=== PATIENT | male | born 1990 | race Caucasian/White ===

== ENCOUNTER 2017-05-19 00:02 | Emergency (ER) | payer MEDICAID ==
[~2017-05-19] VITALS: Ht 167.6 cm; Wt 75.5 kg
[~2017-05-19 00:02] MED LIST: IBUP-1985 PO; PANT-47 PO; SULF1TAB49 PO; TRAM50TA2 PO; WARF5TAB PO
[2017-05-19 02:50] VITALS: BP 118/67
== END 2017-05-19 03:26 | disposition home or self-care (01) ==
LOC: ER 00:02
DX: I87.002 Postthrombotic syndrome without complications of left lower extremity (principal); G89.29 Other chronic pain; F12.10 Cannabis abuse, uncomplicated; F15.90 Other stimulant use, unspecified, uncomplicated; Z86.711 Personal history of pulmonary embolism; Z59.0 Homelessness; Z56.0 Unemployment, unspecified; Z86.718 Personal history of other venous thrombosis and embolism
CPT/HCPCS: 93970; 99284

== ENCOUNTER 2017-07-12 15:28 | Emergency (ER) | payer MEDICAID ==
[~2017-07-12] VITALS: Ht 167.6 cm; Wt 75.0 kg
[~2017-07-12 15:28] MED LIST changes: -IBUP-1985 PO; +NO HOME MEDS; -PANT-47 PO; -SULF1TAB49 PO; -TRAM50TA2 PO; -WARF5TAB PO
[2017-07-12 15:43] VITALS: BP 138/84
== END 2017-07-12 17:44 | disposition home or self-care (01) ==
LOC: ER 15:30
DX: Z02.9 Encounter for administrative examinations, unspecified (principal); G89.29 Other chronic pain; Z86.718 Personal history of other venous thrombosis and embolism; F12.10 Cannabis abuse, uncomplicated; F15.10 Other stimulant abuse, uncomplicated; F11.10 Opioid abuse, uncomplicated; Z56.0 Unemployment, unspecified; Z59.0 Homelessness
CPT/HCPCS: 99281

== ENCOUNTER 2017-08-19 15:24 | Emergency (ER) | payer SELFPAY | END 2017-08-19 16:41 | disposition left against medical advice (07) | LOC: ER 15:25 | DX: M79.605 Pain in left leg (principal); Z53.21 Procedure and treatment not carried out due to patient leaving prior to being seen by health care provider ==

== ENCOUNTER 2017-08-20 20:49 | Inpatient (IN) | payer MEDICAID ==
[~2017-08-20] VITALS: Ht 170.2 cm; Wt 66.0 kg
[2017-08-20] MEDS ORDERED: traMADol 50MG tablet PO ONE (22:05)
[2017-08-20] MEDS ORDERED: ketorolac trometh. 30mg/ml inj. IV ONE (22:05)
[2017-08-20 22:55] LABS: BASOPHILS % (AUTO) 0.3 % (0-1); EOSINOPHILS # (AUTO) 0.1 X10'3 (0-0.9); EOSINOPHILS % (AUTO) 0.9 % (0-6); HEMATOCRIT 34.7 % (42.0-52.0); HEMOGLOBIN 11.8 g/dl (14.0-17.9); LYMPHOCYTES # (AUTO) 2.6 X10'3 (1.1-4.8); LYMPHOCYTES % (AUTO) 37.2 % (21-51); MEAN CORPUSCULAR HEMOGLOBIN 31.9 PG (27.0-31.0); MEAN CORPUSCULAR HGB CONC 34.2 % (33.0-36.5); MEAN CORPUSCULAR VOLUME 93.5 FL (78-98); MEAN PLATELET VOLUME 7.2 FL (7.4-10.4); MONOCYTES # (AUTO) 0.5 X10'3 (0-0.9); MONOCYTES % (AUTO) 7.5 % (2-12); NEUTROPHILS # (AUTO) 3.8 X10'3 (1.8-7.7); NEUTROPHILS % (AUTO) 54.1 % (42-75); PLATELET COUNT 234 X10'3 (140-440); RED BLOOD COUNT 3.71 X10'6 (4.70-6.10); RED CELL DISTRIBUTION WIDTH 13.3 % (11.5-14.5)
[2017-08-20 23:08] LABS: INR 1.1 INR; PARTIAL THROMBOPLASTIN TIME 27 SECONDS (22-32); PROTHROMBIN TIME 10.9 SECONDS (9.0-12.0)
[2017-08-20 23:12] LABS: ALANINE AMINOTRANSFERASE 40 U/L (12-78); ALBUMIN 3.3 G/DL (3.4-5.0); ALBUMIN/GLOBULIN RATIO 0.8 (1.1-1.5); ALKALINE PHOSPHATASE 102 IU/L (46-116); ANION GAP 10 (8-16); ASPARTATE AMINO TRANSFERASE 36 U/L (10-37); BILIRUBIN,TOTAL 0.4 MG/DL (0.1-1.0); BLOOD UREA NITROGEN 20 MG/DL (7-18); BUN/CREATININE RATIO 19.4 (5.4-32.0); CALCIUM 8.2 MG/DL (8.5-10.1); CHLORIDE 105 MMOL/L (99-107); CREATINE KINASE 122 U/L (39-308); CREATININE 1.03 MG/DL (0.60-1.10); GLUCOSE 121 MG/DL (70-104); MAGNESIUM 1.8 MG/DL (1.5-2.4); POTASSIUM 3.8 MMOL/L (3.5-5.1); SODIUM 140 MMOL/L (135-145); TOTAL CARBON DIOXIDE 24.6 MMOL/L (24-32); TOTAL PROTEIN 7.4 G/DL (6.4-8.2); eGFR 88 ML/MIN
[2017-08-20] MEDS ORDERED: iohexol 350MG/ML 100ml bottle IV ONE (23:41)
[2017-08-21] MEDS ORDERED: heparin 10,000 units/1 ML INJ IV PRN (01:40)
[2017-08-21] MEDS ORDERED: heparin 10,000 units/1 ML INJ IV ONE ×2 (01:40)
[2017-08-21] MEDS ORDERED: HYDROcodone/acetaminophen 5mg/325mg tablet PO PRN (02:00)
[2017-08-21] MEDS ORDERED: acetaminophen 325mg tablet PO PRN ×2 (02:00)
[2017-08-21] MEDS ORDERED: ondansetron/PF 4mg/2ml inj IV PRN (02:00)
[2017-08-21] MEDS ORDERED: magnesium hydroxide 30ml (MOM) UD suspension PO PRN (02:00)
[2017-08-21] MEDS ORDERED: mag hydrox/Alum hydrox/simeth 30ml oral suspension PO PRN (02:00)
[2017-08-21] MEDS ORDERED: LORazepam 2 mg/ml vial IV PRN (02:30)
[2017-08-21 03:47] VITALS: BP 127/71
[2017-08-21] MEDS: HYDROcodone/acetaminophen 10/325mg tab PO PRN ×5 (03:58→21:52)
[2017-08-21] MEDS: LORazepam 1 MG tablet PO PRN ×5 (04:11→19:28)
[2017-08-21 07:00] VITALS: BP 117/78
[2017-08-21] MEDS: folic acid 1mg tablet PO SCH (07:54)
[2017-08-21] MEDS: thiamine 100mg tablet PO SCH (07:55)
[2017-08-21] MEDS: multivitamins, therapeutics tablet PO SCH (07:55)
[2017-08-21 10:00] VITALS: BP 112/62
[2017-08-21 13:30] LABS: HIV ANTIBODY 1&2 RAPID PRELIM REACTIVE (Neg)
[2017-08-21 18:00] VITALS: BP 141/94
[2017-08-21] MEDS: rivaroxaban 15mg tablet PO SCH (19:32)
[2017-08-21 22:00] VITALS: BP 89/59
[2017-08-21 23:00] VITALS: BP 112/70
[2017-08-22] MEDS: HYDROcodone/acetaminophen 10/325mg tab PO PRN ×3 (05:14→15:03)
[2017-08-22] MEDS: LORazepam 1 MG tablet PO PRN ×3 (05:14→15:03)
[2017-08-22 06:00] VITALS: BP 119/69
[2017-08-22 06:31] LABS: ALBUMIN 2.9 G/DL (3.4-5.0); ANION GAP 9 (8-16); BLOOD UREA NITROGEN 14 MG/DL (7-18); BUN/CREATININE RATIO 18.2 (5.4-32.0); CALCIUM 8.6 MG/DL (8.5-10.1); CHLORIDE 105 MMOL/L (99-107); CREATININE 0.77 MG/DL (0.60-1.10); GLUCOSE 98 MG/DL (70-104); MAGNESIUM 1.4 MG/DL (1.5-2.4); POTASSIUM 4.2 MMOL/L (3.5-5.1); SODIUM 139 MMOL/L (135-145); TOTAL CARBON DIOXIDE 25.4 MMOL/L (24-32); eGFR > 90 ML/MIN
[2017-08-22] MEDS ORDERED: pantoprazole 40mg Tablet.DR PO SCH (07:30)
[2017-08-22] MEDS: folic acid 1mg tablet PO SCH (07:57)
[2017-08-22] MEDS: multivitamins, therapeutics tablet PO SCH (07:57)
[2017-08-22] MEDS: rivaroxaban 15mg tablet PO SCH (07:57)
[2017-08-22] MEDS: thiamine 100mg tablet PO SCH (07:57)
[2017-08-22] MEDS ORDERED: APIX5TAB3 PO (16:20)
[2017-08-22] MEDS ORDERED: TRAM50TA2 PO (16:21)
[2017-08-23 09:16] LABS: HEP B CORE AB, TOT Negative (Negative); HEPATITIS C ANTIBODY >11.0 s/co ratio (0.0-0.9)
[2017-08-23 11:22] LABS: RPR Reactive (Non Reactive)
== END 2017-08-22 17:00 | disposition home or self-care (01) | DRG 197 ==
LOC: ER 20:50 → ED HOLD 08-21 02:00 → ORTHO 4S 08-21 03:20
PROVIDERS: ADMIT Internal Medicine; ATTEND Legal Medicine
PROC: B32T1ZZ Computerized Tomography (CT Scan) of Left Pulmonary Artery using Low Osmolar Contrast (ICD-10-PCS; principal; 2017-08-21)
PROC: B3201ZZ Computerized Tomography (CT Scan) of Thoracic Aorta using Low Osmolar Contrast (ICD-10-PCS; 2017-08-21)
PROC: B32S1ZZ Computerized Tomography (CT Scan) of Right Pulmonary Artery using Low Osmolar Contrast (ICD-10-PCS; 2017-08-21)
DX: I82.432 Acute embolism and thrombosis of left popliteal vein (principal); D68.2 Hereditary deficiency of other clotting factors; K70.0 Alcoholic fatty liver; F20.9 Schizophrenia, unspecified; M41.9 Scoliosis, unspecified; I82.91 Chronic embolism and thrombosis of unspecified vein; F41.9 Anxiety disorder, unspecified; K29.70 Gastritis, unspecified, without bleeding; D64.9 Anemia, unspecified; G89.29 Other chronic pain; E86.0 Dehydration; F15.10 Other stimulant abuse, uncomplicated; F10.20 Alcohol dependence, uncomplicated; F19.10 Other psychoactive substance abuse, uncomplicated; F11.10 Opioid abuse, uncomplicated; Z59.0 Homelessness; Z56.0 Unemployment, unspecified; Z90.5 Acquired absence of kidney; Z79.01 Long term (current) use of anticoagulants; Z86.711 Personal history of pulmonary embolism; Z91.19 Patient's noncompliance with other medical treatment and regimen
CPT/HCPCS: 36415; 71275; 80048; 80053; 82550; 83735; 85025; 85610; 85730; 86592; 86703; 86704; 86803; 87070; 87535; 93970; 96374; 99285; J1644; J1885; Q9967

== ENCOUNTER 2017-09-05 16:23 | Observation (INO) | payer MEDICAID ==
[~2017-09-05] VITALS: Ht 165.1 cm; Wt 77.0 kg
[~2017-09-05 16:23] MED LIST changes: +APIX5TAB3 PO; +TRAM50TA2 PO
[2017-09-05] MEDS ORDERED: acetaminophen 325mg tablet PO ONE (17:00)
[2017-09-05 17:17] LABS: BASOPHILS # (AUTO) 0.1 X10'3 (0-0.2); EOSINOPHILS # (AUTO) 0.1 X10'3 (0-0.9); EOSINOPHILS % (AUTO) 1.3 % (0-6); HEMATOCRIT 33.2 % (42.0-52.0); HEMOGLOBIN 11.5 g/dl (14.0-17.9); LYMPHOCYTES # (AUTO) 4.2 X10'3 (1.1-4.8); LYMPHOCYTES % (AUTO) 49.3 % (21-51); MEAN CORPUSCULAR HEMOGLOBIN 32.2 PG (27.0-31.0); MEAN CORPUSCULAR HGB CONC 34.7 % (33.0-36.5); MEAN CORPUSCULAR VOLUME 92.7 FL (78-98); MEAN PLATELET VOLUME 6.9 FL (7.4-10.4); MONOCYTES # (AUTO) 0.5 X10'3 (0-0.9); MONOCYTES % (AUTO) 6.1 % (2-12); NEUTROPHILS # (AUTO) 3.6 X10'3 (1.8-7.7); NEUTROPHILS % (AUTO) 42.3 % (42-75); PLATELET COUNT 235 X10'3 (140-440); RED BLOOD COUNT 3.58 X10'6 (4.70-6.10); WHITE BLOOD COUNT 8.5 X10'3 (4.5-11.0)
[2017-09-05 17:27] LABS: PARTIAL THROMBOPLASTIN TIME 25 SECONDS (22-32); PROTHROMBIN TIME 10.3 SECONDS (9.0-12.0)
[2017-09-05 17:31] LABS: ALANINE AMINOTRANSFERASE 31 U/L (12-78); ALBUMIN 3.3 G/DL (3.4-5.0); ALBUMIN/GLOBULIN RATIO 0.8 (1.1-1.5); ALKALINE PHOSPHATASE 96 IU/L (46-116); ANION GAP 11 (8-16); ASPARTATE AMINO TRANSFERASE 27 U/L (10-37); BILIRUBIN,TOTAL 0.3 MG/DL (0.1-1.0); BLOOD UREA NITROGEN 14 MG/DL (7-18); BUN/CREATININE RATIO 19.7 (5.4-32.0); CALCIUM 8.2 MG/DL (8.5-10.1); CHLORIDE 106 MMOL/L (99-107); CREATININE 0.71 MG/DL (0.60-1.10); GLUCOSE 120 MG/DL (70-104); POTASSIUM 3.3 MMOL/L (3.5-5.1); SODIUM 142 MMOL/L (135-145); TOTAL CARBON DIOXIDE 24.9 MMOL/L (24-32); TOTAL PROTEIN 7.3 G/DL (6.4-8.2); eGFR > 90 ML/MIN
[2017-09-05 18:06] LABS: TOTAL CELLS COUNTED 100
[2017-09-05 18:09] LABS: PLATELET ESTIMATE NORMAL; POLYCHROMASIA 1+; SPHEROCYTES FEW; STOMATOCYTES 2+
[2017-09-05] MEDS ORDERED: mag hydrox/Alum hydrox/simeth 30ml oral suspension PO PRN ×3 (19:55)
[2017-09-05] MEDS ORDERED: acetaminophen 325mg tablet PO PRN ×3 (19:55)
[2017-09-05] MEDS ORDERED: ondansetron/PF 4mg/2ml inj IV PRN ×3 (19:55)
[2017-09-05] MEDS ORDERED: magnesium hydroxide 30ml (MOM) UD suspension PO PRN ×3 (19:55)
[2017-09-05 20:33] LABS: HEMATOCRIT 33.9 % (42.0-52.0); HEMOGLOBIN 11.7 g/dl (14.0-17.9); MEAN CORPUSCULAR HEMOGLOBIN 31.9 PG (27.0-31.0); MEAN CORPUSCULAR HGB CONC 34.6 % (33.0-36.5); MEAN CORPUSCULAR VOLUME 92.1 FL (78-98); MEAN PLATELET VOLUME 6.5 FL (7.4-10.4); PLATELET COUNT 231 X10'3 (140-440); RED BLOOD COUNT 3.68 X10'6 (4.70-6.10); RED CELL DISTRIBUTION WIDTH 12.9 % (11.5-14.5); WHITE BLOOD COUNT 6.4 X10'3 (4.5-11.0)
[2017-09-05 20:43] LABS: BLOOD UREA NITROGEN 13 MG/DL (7-18); CREATININE 0.69 MG/DL (0.60-1.10); eGFR > 90 ML/MIN
[2017-09-05] MEDS: morphine 4 MG/ML inj SYRINge IV PRN (20:56)
[2017-09-05 21:30] VITALS: BP 117/66
[2017-09-05 23:55] VITALS: BP 132/83
[2017-09-06] MEDS: morphine 4 MG/ML inj SYRINge IV PRN ×4 (02:26→18:17)
[2017-09-06 05:12] LABS: BASOPHILS % (AUTO) 0.5 % (0-1); EOSINOPHILS # (AUTO) 0.1 X10'3 (0-0.9); EOSINOPHILS % (AUTO) 1.6 % (0-6); HEMOGLOBIN 12.5 g/dl (14.0-17.9); LYMPHOCYTES # (AUTO) 3.4 X10'3 (1.1-4.8); LYMPHOCYTES % (AUTO) 42.4 % (21-51); MEAN CORPUSCULAR HEMOGLOBIN 31.6 PG (27.0-31.0); MEAN CORPUSCULAR HGB CONC 33.9 % (33.0-36.5); MEAN CORPUSCULAR VOLUME 93.2 FL (78-98); MEAN PLATELET VOLUME 7.4 FL (7.4-10.4); MONOCYTES # (AUTO) 0.5 X10'3 (0-0.9); MONOCYTES % (AUTO) 6.4 % (2-12); NEUTROPHILS % (AUTO) 49.1 % (42-75); PLATELET COUNT 226 X10'3 (140-440); RED BLOOD COUNT 3.98 X10'6 (4.70-6.10); RED CELL DISTRIBUTION WIDTH 12.9 % (11.5-14.5); WHITE BLOOD COUNT 8.1 X10'3 (4.5-11.0)
[2017-09-06 06:13] LABS: ALANINE AMINOTRANSFERASE 31 U/L (12-78); ALBUMIN 3.1 G/DL (3.4-5.0); ALBUMIN/GLOBULIN RATIO 0.8 (1.1-1.5); ALKALINE PHOSPHATASE 89 IU/L (46-116); ANION GAP 9 (8-16); ASPARTATE AMINO TRANSFERASE 28 U/L (10-37); BILIRUBIN,TOTAL 0.4 MG/DL (0.1-1.0); BLOOD UREA NITROGEN 14 MG/DL (7-18); BUN/CREATININE RATIO 17.9 (5.4-32.0); CALCIUM 8.3 MG/DL (8.5-10.1); CHLORIDE 106 MMOL/L (99-107); CREATININE 0.78 MG/DL (0.60-1.10); GLUCOSE 100 MG/DL (70-104); POTASSIUM 3.8 MMOL/L (3.5-5.1); SODIUM 140 MMOL/L (135-145); TOTAL CARBON DIOXIDE 25.3 MMOL/L (24-32); TOTAL PROTEIN 7.1 G/DL (6.4-8.2); eGFR > 90 ML/MIN
[2017-09-06 07:00] VITALS: BP 136/93
[2017-09-06] MEDS: enoxaparin 80mg/0.8ml syringe SQ SCH ×2 (07:50→19:24)
[2017-09-06 11:00] VITALS: BP 130/89
[2017-09-06] MEDS ORDERED: penicillin G benzathine 1.2 million unit/2ml syringe IM ONE (13:15)
[2017-09-06 20:00] VITALS: BP 138/88
[2017-09-06] MEDS ORDERED: ketorolac tromethamine 15mg/ml inj. IV ONE (20:35)
[2017-09-07] VITALS: BP 131/87
[2017-09-07] MEDS: morphine 4 MG/ML inj SYRINge IV PRN ×6 (00:04→23:50)
[2017-09-07 05:22] LABS: BASOPHILS # (AUTO) 0.1 X10'3 (0-0.2); BASOPHILS % (AUTO) 0.7 % (0-1); EOSINOPHILS # (AUTO) 0.1 X10'3 (0-0.9); EOSINOPHILS % (AUTO) 1.6 % (0-6); HEMATOCRIT 37.8 % (42.0-52.0); HEMOGLOBIN 12.8 g/dl (14.0-17.9); LYMPHOCYTES # (AUTO) 3.3 X10'3 (1.1-4.8); LYMPHOCYTES % (AUTO) 39.8 % (21-51); MEAN CORPUSCULAR HEMOGLOBIN 31.6 PG (27.0-31.0); MEAN CORPUSCULAR VOLUME 93.1 FL (78-98); MEAN PLATELET VOLUME 7.5 FL (7.4-10.4); MONOCYTES # (AUTO) 0.5 X10'3 (0-0.9); MONOCYTES % (AUTO) 6.3 % (2-12); NEUTROPHILS # (AUTO) 4.3 X10'3 (1.8-7.7); NEUTROPHILS % (AUTO) 51.6 % (42-75); PLATELET COUNT 229 X10'3 (140-440); RED BLOOD COUNT 4.06 X10'6 (4.70-6.10); WHITE BLOOD COUNT 8.3 X10'3 (4.5-11.0)
[2017-09-07 06:07] LABS: ALANINE AMINOTRANSFERASE 26 U/L (12-78); ALBUMIN 3.1 G/DL (3.4-5.0); ALBUMIN/GLOBULIN RATIO 0.8 (1.1-1.5); ALKALINE PHOSPHATASE 96 IU/L (46-116); ANION GAP 8 (8-16); ASPARTATE AMINO TRANSFERASE 21 U/L (10-37); BILIRUBIN,TOTAL 0.3 MG/DL (0.1-1.0); BLOOD UREA NITROGEN 12 MG/DL (7-18); CALCIUM 8.4 MG/DL (8.5-10.1); CHLORIDE 104 MMOL/L (99-107); GLUCOSE 107 MG/DL (70-104); MAGNESIUM 1.9 MG/DL (1.5-2.4); PHOSPHORUS 4.4 MG/DL (2.3-4.5); SODIUM 138 MMOL/L (135-145); TOTAL CARBON DIOXIDE 25.6 MMOL/L (24-32); TOTAL PROTEIN 7.2 G/DL (6.4-8.2); eGFR > 90 ML/MIN
[2017-09-07 08:00] VITALS: BP 130/88
[2017-09-07 08:21] LABS: BASOS 1 % (Not Estab.); EOS 1 % (Not Estab.); EOS (ABSOLUTE) 0.1 x10E3/uL (0.0-0.4); HEMATOCRIT 37.6 % (37.5-51.0); HEMOGLOBIN 12.5 g/dL (13.0-17.7); LYMPHS 41 % (Not Estab.); LYMPHS (ABSOLUTE) 3.4 x10E3/uL (0.7-3.1); MCH 31.3 pg (26.6-33.0); MCHC 33.2 g/dL (31.5-35.7); MCV 94 fL (79-97); MONOCYTES 8 % (Not Estab.); MONOCYTES (ABSOLUTE) 0.6 x10E3/uL (0.1-0.9); NEUTROPHILS 49 % (Not Estab.); PLATELETS 240 x10E3/uL (150-379); RDW 13.6 % (12.3-15.4); WBC 8.1 x10E3/uL (3.4-10.8)
[2017-09-07] MEDS: enoxaparin 80mg/0.8ml syringe SQ SCH ×2 (08:55→19:51)
[2017-09-07 11:00] VITALS: BP 125/83
[2017-09-07] MEDS ORDERED: MORPHINE 2MG in 2ml NS syringe IV ONE (12:00)
[2017-09-07 15:33] LABS: % CD 4 POS. LYMPH. 19.4 % (30.8-58.5); % CD 8 POS. LYMPH. 72.2 % (12.0-35.5); ABS. CD 8 SUPPRESSOR 2455 /uL (109-897); ABSOLUTE CD 4 HELPER 660 /uL (359-1519); CD4/CD8 RATIO 0.27 (0.92-3.72)
[2017-09-07 20:00] VITALS: BP 136/93
[2017-09-08] VITALS: BP 139/86
[2017-09-08] MEDS: morphine 4 MG/ML inj SYRINge IV PRN (04:05)
[2017-09-08 04:55] LABS: BASOPHILS # (AUTO) 0.1 X10'3 (0-0.2); BASOPHILS % (AUTO) 0.6 % (0-1); EOSINOPHILS # (AUTO) 0.1 X10'3 (0-0.9); EOSINOPHILS % (AUTO) 1.5 % (0-6); HEMOGLOBIN 13.8 g/dl (14.0-17.9); LYMPHOCYTES # (AUTO) 3.8 X10'3 (1.1-4.8); LYMPHOCYTES % (AUTO) 42.7 % (21-51); MEAN CORPUSCULAR HEMOGLOBIN 32.6 PG (27.0-31.0); MEAN CORPUSCULAR HGB CONC 35.4 % (33.0-36.5); MEAN CORPUSCULAR VOLUME 92.2 FL (78-98); MEAN PLATELET VOLUME 7.4 FL (7.4-10.4); MONOCYTES # (AUTO) 0.5 X10'3 (0-0.9); MONOCYTES % (AUTO) 5.4 % (2-12); NEUTROPHILS # (AUTO) 4.4 X10'3 (1.8-7.7); NEUTROPHILS % (AUTO) 49.8 % (42-75); PLATELET COUNT 243 X10'3 (140-440); RED BLOOD COUNT 4.23 X10'6 (4.70-6.10); RED CELL DISTRIBUTION WIDTH 12.8 % (11.5-14.5); WHITE BLOOD COUNT 8.8 X10'3 (4.5-11.0)
[2017-09-08 05:20] LABS: ALANINE AMINOTRANSFERASE 34 U/L (12-78); ALBUMIN 3.1 G/DL (3.4-5.0); ALBUMIN/GLOBULIN RATIO 0.7 (1.1-1.5); ALKALINE PHOSPHATASE 99 IU/L (46-116); ANION GAP 8 (8-16); ASPARTATE AMINO TRANSFERASE 27 U/L (10-37); BILIRUBIN,TOTAL 0.3 MG/DL (0.1-1.0); BLOOD UREA NITROGEN 12 MG/DL (7-18); BUN/CREATININE RATIO 16.9 (5.4-32.0); CALCIUM 8.7 MG/DL (8.5-10.1); CHLORIDE 103 MMOL/L (99-107); CREATININE 0.71 MG/DL (0.60-1.10); GLUCOSE 109 MG/DL (70-104); POTASSIUM 4.3 MMOL/L (3.5-5.1); SODIUM 137 MMOL/L (135-145); TOTAL CARBON DIOXIDE 26.3 MMOL/L (24-32); TOTAL PROTEIN 7.4 G/DL (6.4-8.2); eGFR > 90 ML/MIN
[2017-09-08 07:20] VITALS: BP 128/89
[2017-09-08 11:28] LABS: RPR Reactive (Non Reactive)
== END 2017-09-08 10:15 | disposition left against medical advice (07) ==
LOC: ER 16:24 → ED HOLD 19:52 → EDBEDREQ 21:04 → SUR 3N 21:15
PROVIDERS: ADMIT Emergency Medicine; ATTEND Internal Medicine
DX: I82.432 Acute embolism and thrombosis of left popliteal vein (principal); I82.4Z2 Acute embolism and thrombosis of unspecified deep veins of left distal lower extremity; B20 Human immunodeficiency virus [HIV] disease; B19.20 Unspecified viral hepatitis C without hepatic coma; F12.90 Cannabis use, unspecified, uncomplicated; F19.10 Other psychoactive substance abuse, uncomplicated; F17.200 Nicotine dependence, unspecified, uncomplicated; F20.9 Schizophrenia, unspecified; D68.2 Hereditary deficiency of other clotting factors; D68.59 Other primary thrombophilia; D68.51 Activated protein C resistance; Z86.711 Personal history of pulmonary embolism; Z59.0 Homelessness; Z91.19 Patient's noncompliance with other medical treatment and regimen
CPT/HCPCS: 36415; 73590; 80053; 82565; 83735; 84100; 84520; 85025; 85027; 85610; 85730; 86140; 86360; 86592; 87070; 93971; 96372; 96374; 96375; 96376; 99285; G0378; J0561; J1650; J1885; J2270; J2274

== ENCOUNTER 2017-10-26 02:03 | Emergency (ER) | payer MEDICAID ==
[~2017-10-26] VITALS: Ht 165.1 cm; Wt 71.1 kg
[~2017-10-26 02:03] MED LIST changes: -NO HOME MEDS; -TRAM50TA2 PO
[2017-10-26 02:44] LABS: CLARITY,URINE TURBID (Clear); COLOR,URINE YELLOW (Yellow); GLUCOSE, URINE NEGATIVE (Neg); KETONES,URINE NEGATIVE (Neg); LEUKOCYTE ESTERASE ,URINE NEGATIVE (Neg); NITRITES, URINE NEGATIVE (Neg); OCCULT BLOOD,URINE LARGE (Neg); PROTEIN,URINE TRACE mg/dl (Neg); UA COLLECTION TYPE CLN CATCH MIDSTREAM
[2017-10-26 03:01] LABS: BACTERIA,URINE NONE SEEN /HPF (Neg); SQUAMOUS EPITHELIAL CELL,UR FEW /LPF (FEW); WBC,URINE NONE SEEN /HPF (0-4)
[2017-10-26 03:02] LABS: AMORPHOUS URATES 4+; MUCUS STRANDS NONE SEEN /LPF (Neg)
[2017-10-26] MEDS ORDERED: HYDROcodone/acetaminophen 5mg/325mg tablet PO ONE (03:25)
[2017-10-26 03:43] LABS: BASOPHILS # (AUTO) 0.1 X10'3 (0-0.2); BASOPHILS % (AUTO) 1.3 % (0-1); EOSINOPHILS # (AUTO) 0.5 X10'3 (0-0.9); EOSINOPHILS % (AUTO) 8.6 % (0-6); HEMATOCRIT 35.5 % (42.0-52.0); HEMOGLOBIN 12.3 g/dl (14.0-17.9); LYMPHOCYTES # (AUTO) 2.3 X10'3 (1.1-4.8); LYMPHOCYTES % (AUTO) 39.4 % (21-51); MEAN CORPUSCULAR HEMOGLOBIN 31.6 PG (27.0-31.0); MEAN CORPUSCULAR HGB CONC 34.5 % (33.0-36.5); MEAN CORPUSCULAR VOLUME 91.7 FL (78-98); MEAN PLATELET VOLUME 8.3 FL (7.4-10.4); MONOCYTES # (AUTO) 0.5 X10'3 (0-0.9); MONOCYTES % (AUTO) 8.8 % (2-12); NEUTROPHILS # (AUTO) 2.5 X10'3 (1.8-7.7); NEUTROPHILS % (AUTO) 41.9 % (42-75); PLATELET COUNT 152 X10'3 (140-440); RED BLOOD COUNT 3.87 X10'6 (4.70-6.10); RED CELL DISTRIBUTION WIDTH 13.5 % (11.5-14.5); WHITE BLOOD COUNT 5.9 X10'3 (4.5-11.0)
[2017-10-26] MEDS ORDERED: CefTRIAXone/D5W-Rocephin 1gm 50 ML IV ONE (03:45)
[2017-10-26 03:55] LABS: INR 1.1 INR; PARTIAL THROMBOPLASTIN TIME 26 SECONDS (22-32); PROTHROMBIN TIME 11.1 SECONDS (9.0-12.0)
[2017-10-26 04:02] LABS: ALANINE AMINOTRANSFERASE 349 U/L (12-78); ALBUMIN 3.3 G/DL (3.4-5.0); ALBUMIN/GLOBULIN RATIO 0.8 (1.1-1.5); ALKALINE PHOSPHATASE 138 IU/L (46-116); ANION GAP 7 (8-16); ASPARTATE AMINO TRANSFERASE 330 U/L (10-37); BILIRUBIN,TOTAL 0.3 MG/DL (0.1-1.0); BLOOD UREA NITROGEN 10 MG/DL (7-18); BUN/CREATININE RATIO 10.5 (5.4-32.0); CALCIUM 8.4 MG/DL (8.5-10.1); CHLORIDE 104 MMOL/L (99-107); CREATININE 0.95 MG/DL (0.60-1.10); GLUCOSE 102 MG/DL (70-104); MAGNESIUM 1.6 MG/DL (1.5-2.4); POTASSIUM 3.8 MMOL/L (3.5-5.1); SODIUM 139 MMOL/L (135-145); TOTAL CARBON DIOXIDE 28.3 MMOL/L (24-32); TOTAL PROTEIN 7.6 G/DL (6.4-8.2); eGFR > 90 ML/MIN
[2017-10-26] MEDS ORDERED: SULF1TAB49 PO (04:43)
[2017-10-26 04:59] VITALS: BP 115/69
== END 2017-10-26 05:01 | disposition home or self-care (01) ==
LOC: ER 02:04
DX: S81.802A Unspecified open wound, left lower leg, initial encounter (principal); L03.116 Cellulitis of left lower limb; F12.90 Cannabis use, unspecified, uncomplicated; F15.90 Other stimulant use, unspecified, uncomplicated; F11.90 Opioid use, unspecified, uncomplicated; G89.29 Other chronic pain; Z86.718 Personal history of other venous thrombosis and embolism; Z88.6 Allergy status to analgesic agent; Z88.5 Allergy status to narcotic agent; Z79.899 Other long term (current) drug therapy; Z59.0 Homelessness; Z56.0 Unemployment, unspecified; X58.XXXA Exposure to other specified factors, initial encounter; Y93.89 Activity, other specified; Y92.89 Other specified places as the place of occurrence of the external cause; Y99.8 Other external cause status
CPT/HCPCS: 36415; 80053; 81001; 83605; 83735; 84145; 85025; 85610; 85730; 87040; 87070; 87077; 87186; 96365; 99284; J0696

== ENCOUNTER 2017-11-07 01:57 | Inpatient (IN) | payer MEDICAID ==
[~2017-11-07] VITALS: Ht 167.6 cm; Wt 80.0 kg
[2017-11-07] MEDS ORDERED: piperacillin/tazo 3.375gm/50ml 50 ML IV ONE (02:15)
[2017-11-07] MEDS ORDERED: vancomycin/NS 1 GM ADD-VANTAGE 250 ML IV ONE (02:15)
[2017-11-07] MEDS ORDERED: normal saline 1000ML IV soln IV ONE (02:15)
[2017-11-07 02:56] LABS: BASOPHILS % (AUTO) 0.5 % (0-1); EOSINOPHILS # (AUTO) 0.1 X10'3 (0-0.9); EOSINOPHILS % (AUTO) 0.9 % (0-6); HEMATOCRIT 36.3 % (42.0-52.0); HEMOGLOBIN 12.7 g/dl (14.0-17.9); LYMPHOCYTES # (AUTO) 2.5 X10'3 (1.1-4.8); LYMPHOCYTES % (AUTO) 29.1 % (21-51); MEAN CORPUSCULAR HEMOGLOBIN 31.6 PG (27.0-31.0); MEAN CORPUSCULAR HGB CONC 34.9 % (33.0-36.5); MEAN CORPUSCULAR VOLUME 90.5 FL (78-98); MEAN PLATELET VOLUME 7.2 FL (7.4-10.4); MONOCYTES # (AUTO) 0.7 X10'3 (0-0.9); MONOCYTES % (AUTO) 8.3 % (2-12); NEUTROPHILS # (AUTO) 5.2 X10'3 (1.8-7.7); NEUTROPHILS % (AUTO) 61.2 % (42-75); PLATELET COUNT 231 X10'3 (140-440); RED BLOOD COUNT 4.01 X10'6 (4.70-6.10); RED CELL DISTRIBUTION WIDTH 13.8 % (11.5-14.5); WHITE BLOOD COUNT 8.5 X10'3 (4.5-11.0)
[2017-11-07 03:06] LABS: PARTIAL THROMBOPLASTIN TIME 26 SECONDS (22-32); PROTHROMBIN TIME 10.7 SECONDS (9.0-12.0)
[2017-11-07] MEDS ORDERED: NO HOME MEDS (03:06)
[2017-11-07 03:11] LABS: ALANINE AMINOTRANSFERASE 351 U/L (12-78); ALBUMIN 3.5 G/DL (3.4-5.0); ALBUMIN/GLOBULIN RATIO 0.7 (1.1-1.5); ALKALINE PHOSPHATASE 215 IU/L (46-116); ANION GAP 12 (8-16); ASPARTATE AMINO TRANSFERASE 248 U/L (10-37); BILIRUBIN,TOTAL 0.5 MG/DL (0.1-1.0); BLOOD UREA NITROGEN 22 MG/DL (7-18); BUN/CREATININE RATIO 20.2 (5.4-32.0); CALCIUM 8.4 MG/DL (8.5-10.1); CHLORIDE 101 MMOL/L (99-107); CREATININE 1.09 MG/DL (0.60-1.10); GLUCOSE 150 MG/DL (70-104); POTASSIUM 3.6 MMOL/L (3.5-5.1); SODIUM 137 MMOL/L (135-145); TOTAL CARBON DIOXIDE 24.2 MMOL/L (24-32); TOTAL PROTEIN 8.3 G/DL (6.4-8.2); eGFR 82 ML/MIN
[2017-11-07 03:20] LABS: CLARITY,URINE CLEAR (Clear); COLOR,URINE YELLOW (Yellow); GLUCOSE, URINE NEGATIVE (Neg); KETONES,URINE NEGATIVE (Neg); LEUKOCYTE ESTERASE ,URINE NEGATIVE (Neg); NITRITES, URINE NEGATIVE (Neg); OCCULT BLOOD,URINE NEGATIVE (Neg); PH,URINE 5.5 (4.8-8.0); PROTEIN,URINE TRACE mg/dl (Neg)
[2017-11-07 03:31] LABS: BACTERIA,URINE FEW /HPF (Neg); RBC,URINE 0-2 /HPF (0-2); SQUAMOUS EPITHELIAL CELL,UR FEW /LPF (FEW); UA COLLECTION TYPE VOIDED; WBC,URINE 0-4 /HPF (0-4)
[2017-11-07 03:47] LABS: URINE AMPHETAMINE SCREEN POSITIVE (Neg); URINE BARBITUATE SCREEN NEGATIVE (Neg); URINE BENZODIAZEPINES SCREEN NEGATIVE (Neg); URINE CANNABINOID SCREEN POSITIVE (Neg); URINE COCAINE SCREEN NEGATIVE (Neg); URINE METHADONE SCREEN NEGATIVE (Neg); URINE OPIATE SCREEN POSITIVE (Neg); URINE PHENCYCLIDINE SCREEN NEGATIVE (Neg)
[2017-11-07] MEDS ORDERED: enoxaparin 80mg/0.8ml syringe SUBCUT ONE (04:01)
[2017-11-07] MEDS ORDERED: penicillin G benzathine 1.2 million unit/2ml syringe IM ONE ×3 (04:05→12:10)
[2017-11-07] MEDS ORDERED: normal saline 1000ml 1,000 ML IV SCH (04:32)
[2017-11-07] MEDS ORDERED: acetaminophen 325mg tablet PO PRN (04:35)
[2017-11-07] MEDS ORDERED: ondansetron/PF 4mg/2ml inj IV PRN (04:35)
[2017-11-07] MEDS ORDERED: mag hydrox/Alum hydrox/simeth 30ml oral suspension PO PRN (04:35)
[2017-11-07] MEDS ORDERED: magnesium hydroxide 30ml (MOM) UD suspension PO PRN (04:35)
[2017-11-07] MEDS ORDERED: LORazepam 1 MG tablet PO PRN (04:45)
[2017-11-07 06:05] VITALS: BP 128/74
[2017-11-07] MEDS: HYDROcodone/acetaminophen 10/325mg tab PO SCH ×2 (07:35→12:14)
[2017-11-07] MEDS ORDERED: clindamycin 600mg/D5W 50ml 50 ML IV SCH (08:00)
[2017-11-07] MEDS ORDERED: haloperidol 5mg tablet PO PRN (08:30)
[2017-11-07] MEDS ORDERED: thiamine inj. 100 MG in normal saline 100ml IV soln 100 ML IV ONE (08:30)
[2017-11-07] MEDS ORDERED: haloperidol lactate 5mg/ml inj IM PRN (08:30)
[2017-11-07] MEDS ORDERED: LORazepam 2 mg/ml vial IV PRN (08:30)
[2017-11-07 11:35] VITALS: BP 121/71
[2017-11-07] MEDS ORDERED: levoFLOXACIN 500mg tablet PO ONE (12:05)
[2017-11-07] MEDS ORDERED: CLIN-5 PO (14:03)
[2017-11-07] MEDS ORDERED: LEVO750T21 PO (14:03)
[2017-11-07] MEDS ORDERED: enoxaparin 40mg/0.4ml syringe SUBCUT SCH (16:00)
[2017-11-08] MEDS ORDERED: folic acid inj. 2 MG, thiamine inj. 100 MG, MVI, adult No.4 with vit. K 10 ML in dextro... IV SCH ×4 (08:00)
[2017-11-09] MEDS ORDERED: LORazepam 2 mg/ml vial IV PRN (08:30)
[2017-11-09] MEDS ORDERED: LORazepam 1 MG tablet PO PRN (08:30)
[2017-11-11] MEDS ORDERED: LORazepam 1 MG tablet PO PRN (08:30)
[2017-11-11] MEDS ORDERED: LORazepam 2 mg/ml vial IV PRN (08:30)
== END 2017-11-07 15:45 | disposition home or self-care (01) | DRG 197 ==
LOC: ER 01:59 → ED HOLD 04:32 → ORTHO 4S 05:55
PROVIDERS: ADMIT Internal Medicine; ATTEND Family Medicine
DX: I82.4Z2 Acute embolism and thrombosis of unspecified deep veins of left distal lower extremity (principal); D68.51 Activated protein C resistance; D68.2 Hereditary deficiency of other clotting factors; L03.116 Cellulitis of left lower limb; L97.929 Non-pressure chronic ulcer of unspecified part of left lower leg with unspecified severity; A52.8 Late syphilis, latent; I27.82 Chronic pulmonary embolism; I82.5Z2 Chronic embolism and thrombosis of unspecified deep veins of left distal lower extremity; F20.9 Schizophrenia, unspecified; R74.0 Nonspecific elevation of levels of transaminase and lactic acid dehydrogenase [LDH]; G89.29 Other chronic pain; M54.9 Dorsalgia, unspecified; F19.10 Other psychoactive substance abuse, uncomplicated; Z91.14 Patient's other noncompliance with medication regimen; Z88.8 Allergy status to other drugs, medicaments and biological substances; Z91.19 Patient's noncompliance with other medical treatment and regimen; Z88.6 Allergy status to analgesic agent; Z56.0 Unemployment, unspecified; Z59.0 Homelessness
CPT/HCPCS: 36415; 71045; 73590; 80053; 80305; 81001; 83605; 83735; 84145; 85025; 85610; 85730; 86592; 87040; 87070; 93971; J0561; J1650; J2543; J3370; J3411; J3490; J7030; J7060

== ENCOUNTER 2017-11-20 15:38 | Emergency (ER) | payer MEDICAID ==
[~2017-11-20] VITALS: Ht 167.6 cm; Wt 73.1 kg
[~2017-11-20 15:38] MED LIST changes: -APIX5TAB3 PO; +CLIN-5 PO; +LEVO750T21 PO
[2017-11-20 15:45] VITALS: BP 110/89
== END 2017-11-20 17:04 | disposition left against medical advice (07) ==
LOC: ER 15:38
DX: S01.01XA Laceration without foreign body of scalp, initial encounter (principal); G89.29 Other chronic pain; F12.90 Cannabis use, unspecified, uncomplicated; F15.90 Other stimulant use, unspecified, uncomplicated; F11.90 Opioid use, unspecified, uncomplicated; Z86.711 Personal history of pulmonary embolism; Z86.718 Personal history of other venous thrombosis and embolism; Z59.0 Homelessness; Z56.0 Unemployment, unspecified; Z98.890 Other specified postprocedural states; Z88.5 Allergy status to narcotic agent; Z88.8 Allergy status to other drugs, medicaments and biological substances; Z79.899 Other long term (current) drug therapy; W22.8XXA Striking against or struck by other objects, initial encounter; Y93.89 Activity, other specified; Y92.89 Other specified places as the place of occurrence of the external cause; Y99.8 Other external cause status
CPT/HCPCS: 70450; 99284

== ENCOUNTER 2017-12-04 01:30 | Emergency (ER) | payer MEDICAID | END 2017-12-04 01:53 | disposition left against medical advice (07) | LOC: ER 01:30 | DX: R22.40 Localized swelling, mass and lump, unspecified lower limb (principal); Z53.21 Procedure and treatment not carried out due to patient leaving prior to being seen by health care provider ==

== ENCOUNTER 2017-12-21 04:13 | Emergency (ER) | payer MEDICAID ==
[~2017-12-21 04:13] MED LIST changes: -LEVO750T21 PO
== END 2017-12-21 05:28 | disposition left against medical advice (07) ==
LOC: ER 04:14
DX: L08.9 Local infection of the skin and subcutaneous tissue, unspecified (principal); Z53.21 Procedure and treatment not carried out due to patient leaving prior to being seen by health care provider

== ENCOUNTER 2018-02-02 22:54 | Emergency (ER) | payer MEDICAID ==
[~2018-02-02] VITALS: Ht 165.1 cm; Wt 72.3 kg
[2018-02-02 23:46] VITALS: BP 125/86
== END 2018-02-03 01:57 | disposition left against medical advice (07) ==
LOC: ER 22:55
DX: R45.851 Suicidal ideations (principal); Z53.21 Procedure and treatment not carried out due to patient leaving prior to being seen by health care provider

== ENCOUNTER 2018-02-09 11:27 | Emergency (ER) | payer MEDICAID ==
[~2018-02-09] VITALS: Ht 167.6 cm; Wt 80.0 kg
[2018-02-09 11:38] VITALS: BP 123/81
[2018-02-09] MEDS ORDERED: CHLO25CA10 PO (12:22)
[2018-02-09] MEDS ORDERED: LORA1TAB PO (12:22)
== END 2018-02-09 12:35 | disposition home or self-care (01) ==
LOC: ER 11:27
DX: Z00.00 Encounter for general adult medical examination without abnormal findings (principal); G89.29 Other chronic pain; F12.90 Cannabis use, unspecified, uncomplicated; F15.90 Other stimulant use, unspecified, uncomplicated; F11.90 Opioid use, unspecified, uncomplicated; F19.90 Other psychoactive substance use, unspecified, uncomplicated; Z86.711 Personal history of pulmonary embolism; Z98.890 Other specified postprocedural states; Z59.0 Homelessness; Z56.0 Unemployment, unspecified; Z88.5 Allergy status to narcotic agent; Z88.8 Allergy status to other drugs, medicaments and biological substances; Z79.2 Long term (current) use of antibiotics; Z79.899 Other long term (current) drug therapy; Z86.718 Personal history of other venous thrombosis and embolism
CPT/HCPCS: 99283

== ENCOUNTER 2018-02-09 22:48 | Emergency (ER) | payer MEDICAID ==
[~2018-02-09] VITALS: Ht 167.6 cm; Wt 80.0 kg
[~2018-02-09 22:48] MED LIST changes: +CHLO25CA10 PO; +LORA1TAB PO
[2018-02-09 23:37] VITALS: BP 137/84
[2018-02-09] MEDS ORDERED: HYDROcodone/acetaminophen 5mg/325mg tablet PO ONE (23:45)
== END 2018-02-10 00:16 | disposition home or self-care (01) ==
LOC: ER 22:48
DX: I82.502 Chronic embolism and thrombosis of unspecified deep veins of left lower extremity (principal); G89.29 Other chronic pain; F12.90 Cannabis use, unspecified, uncomplicated; F15.90 Other stimulant use, unspecified, uncomplicated; F11.90 Opioid use, unspecified, uncomplicated; Z88.6 Allergy status to analgesic agent; Z88.5 Allergy status to narcotic agent; Z79.2 Long term (current) use of antibiotics; Z79.899 Other long term (current) drug therapy; Z59.0 Homelessness; Z56.0 Unemployment, unspecified
CPT/HCPCS: 93971; 99284

== ENCOUNTER 2018-05-25 22:16 | Emergency (ER) | payer MEDICAID ==
[~2018-05-25] VITALS: Ht 167.6 cm; Wt 84.1 kg
[~2018-05-25 22:16] MED LIST changes: -LORA1TAB PO
[2018-05-25 22:22] VITALS: BP 142/92
== END 2018-05-25 23:35 ==
LOC: ER 22:17
DX: F15.10 Other stimulant abuse, uncomplicated (principal); R06.02 Shortness of breath; G89.29 Other chronic pain; F41.9 Anxiety disorder, unspecified; F32.9 Major depressive disorder, single episode, unspecified; F12.10 Cannabis abuse, uncomplicated; F11.10 Opioid abuse, uncomplicated; Z59.0 Homelessness; Z56.0 Unemployment, unspecified; Z86.711 Personal history of pulmonary embolism; Z86.718 Personal history of other venous thrombosis and embolism; Z88.5 Allergy status to narcotic agent; Z79.899 Other long term (current) drug therapy
CPT/HCPCS: 99283

== ENCOUNTER 2018-11-18 10:11 | Emergency (ER) | payer MEDICAID ==
[~2018-11-18] VITALS: Ht 157.5 cm; Wt 72.7 kg
[~2018-11-18 10:11] MED LIST changes: +APIX5TAB3 PO; +BENZ1TAB7 PO; +BUPR1TAB52 SL; -CHLO25CA10 PO; -CLIN-5 PO; +FLUO20CA22 PO; +OLAN10TA19 PO; +OLAN2.5T28 PO; +TRAZ-251 PO
[2018-11-18 11:56] LABS: ALANINE AMINOTRANSFERASE 111 U/L (12-78); ALBUMIN 3.5 G/DL (3.4-5.0); ALBUMIN/GLOBULIN RATIO 0.7 (1.1-1.5); ALKALINE PHOSPHATASE 85 IU/L (46-116); ANION GAP 10 (8-16); ASPARTATE AMINO TRANSFERASE 132 U/L (10-37); BILIRUBIN,TOTAL 0.2 MG/DL (0.1-1.0); BLOOD UREA NITROGEN 12 MG/DL (7-18); BUN/CREATININE RATIO 15.8 (5.4-32.0); CALCIUM 8.7 MG/DL (8.5-10.1); CHLORIDE 107 MMOL/L (99-107); CREATININE 0.76 MG/DL (0.60-1.10); GLUCOSE 106 MG/DL (70-104); POTASSIUM 4.2 MMOL/L (3.5-5.1); SODIUM 141 MMOL/L (135-145); TOTAL CARBON DIOXIDE 24.3 MMOL/L (24-32); TOTAL PROTEIN 8.3 G/DL (6.4-8.2); eGFR > 90 ML/MIN
[2018-11-18 12:04] LABS: BASOPHILS % (AUTO) 0.6 % (0-1); EOSINOPHILS # (AUTO) 0.1 X10'3 (0-0.9); EOSINOPHILS % (AUTO) 0.8 % (0-6); HEMATOCRIT 39.5 % (42.0-52.0); HEMOGLOBIN 13.2 g/dl (14.0-17.9); LYMPHOCYTES # (AUTO) 2.4 X10'3 (1.1-4.8); LYMPHOCYTES % (AUTO) 35.4 % (21-51); MEAN CORPUSCULAR HEMOGLOBIN 31.6 PG (27.0-31.0); MEAN CORPUSCULAR HGB CONC 33.5 g/dL (33.0-36.5); MEAN CORPUSCULAR VOLUME 94.2 FL (78-98); MEAN PLATELET VOLUME 7.5 FL (7.4-10.4); MONOCYTES # (AUTO) 0.5 X10'3 (0-0.9); MONOCYTES % (AUTO) 7.2 % (2-12); NEUTROPHILS # (AUTO) 3.9 X10'3 (1.8-7.7); PLATELET COUNT 225 X10'3 (140-440); RED BLOOD COUNT 4.19 X10'6 (4.70-6.10); RED CELL DISTRIBUTION WIDTH 14.8 % (11.5-14.5); WHITE BLOOD COUNT 6.9 X10'3 (4.5-11.0)
[2018-11-18 12:06] LABS: ETHANOL 0.335 GM/DL (0.0-0.010)
[2018-11-18] MEDS ORDERED: normal saline 1000ML IV soln IVB ONE ×2 (12:15→15:30)
[2018-11-18] MEDS ORDERED: thiamine 100mg tablet PO ONE (12:15)
[2018-11-18 13:43] LABS: URINE AMPHETAMINE SCREEN NEGATIVE (Neg); URINE BARBITUATE SCREEN NEGATIVE (Neg); URINE BENZODIAZEPINES SCREEN NEGATIVE (Neg); URINE CANNABINOID SCREEN POSITIVE (Neg); URINE COCAINE SCREEN NEGATIVE (Neg); URINE METHADONE SCREEN NEGATIVE (Neg); URINE OPIATE SCREEN NEGATIVE (Neg); URINE PHENCYCLIDINE SCREEN NEGATIVE (Neg)
[2018-11-18] MEDS ORDERED: LORazepam 2 mg/ml vial IM ONE (13:45)
--- NOTE | 2018-11-18 14:28 | NUR ---
Pt brought to the ER Overflow. He has fluids ordered. He is asking for more medication. He was just given an Ativan.
--- NOTE | 2018-11-18 14:49 | NUR ---
PT IS DEMANDING GEODON. PT IS BEING MOUTHY
--- NOTE | 2018-11-18 14:51 | NUR ---
Pt up to the bathroom.
[2018-11-18 14:52] LABS: CLARITY,URINE CLEAR (Clear); COLOR,URINE YELLOW (Yellow); GLUCOSE, URINE NEGATIVE (Neg); KETONES,URINE NEGATIVE (Neg); LEUKOCYTE ESTERASE ,URINE NEGATIVE (Neg); NITRITES, URINE NEGATIVE (Neg); OCCULT BLOOD,URINE NEGATIVE (Neg); PH,URINE 5.5 (4.8-8.0); PROTEIN,URINE NEGATIVE (Neg); UROBILINOGEN,URINE 0.2 E.U/dL (0.2-1.0)
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
[2018-11-18 14:57] LABS: UA COLLECTION TYPE CLN CATCH MIDSTREAM
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
--- NOTE | 2018-11-18 15:15 | NUR ---
Pt in bed resting with lights off
--- NOTE | 2018-11-18 15:18 | NUR ---
PT IS IN BATHROOM
[2018-11-18] MEDS ORDERED: ziprasidone IM 20mg inj **IM only IM ONE (15:30)
[2018-11-18] MEDS ORDERED: APIX5TAB3 PO (16:03)
[2018-11-18] MEDS ORDERED: OLAN5TAB5 PO (16:04)
[2018-11-18] MEDS ORDERED: TRAZ-219 PO (16:05)
--- NOTE | 2018-11-18 16:09 | NUR ---
Pt asleep resting on left side in no apparent distress. Respirations are even and unlabored.
--- NOTE | 2018-11-18 16:49 | NUR ---
Pt up to the bathroom
--- NOTE | 2018-11-18 18:02 | NUR ---
Pt asleep resting on right side in no apparent distress. Respirations are even and unlabored.
[2018-11-18] MEDS ORDERED: traMADol 50MG tablet PO ONE (18:50)
[2018-11-18] MEDS: apixaban 5mg tablet PO SCH (20:28)
[2018-11-18] MEDS: traZODone 50mg tablet PO SCH (21:00)
[2018-11-19] MEDS ORDERED: traMADol 50MG tablet PO ONE (01:15)
--- NOTE | 2018-11-19 06:19 | NUR ---
Pt asleep on his back with even unlabored respirations in no apparent distress
--- NOTE | 2018-11-19 06:42 | NUR ---
Dr Maguire at bedside evaluating pain and suicidality
[2018-11-19] MEDS: OLANZapine 5mg rapidly disint. tablet PO SCH (07:03)
[2018-11-19] MEDS: apixaban 5mg tablet PO SCH ×2 (07:03→19:40)
[2018-11-19] MEDS: traMADol 50MG tablet PO SCH ×2 (07:04→19:41)
--- NOTE | 2018-11-19 08:14 | NUR ---
Pt sitting up awake and eating breakfast
--- NOTE | 2018-11-19 09:25 | NUR ---
Pt lying on his back asleep in no apprent distress. Respirations are even and unlabored.
--- NOTE | 2018-11-19 11:36 | NUR ---
Pt lying on his left side asleep in no apprent distress. Respirations are even and unlabored.
--- NOTE | 2018-11-19 12:31 | NUR ---
Pt lying on his right side asleep in no apprent distress. Respirations are even and unlabored.
--- NOTE | 2018-11-19 13:04 | NUR ---
Pt sittting up and eating lunch
--- NOTE | 2018-11-19 13:07 | NUR ---
Pt up to the bathroom
--- NOTE | 2018-11-19 13:58 | NUR ---
PT SLEEPING, NO S/S OF DISTRESS, DISCOMFORT OR AGITATION, RESPIRATIONS SPONTANEOUS, EVEN AND UNLABORED.
--- NOTE | 2018-11-19 15:19 | NUR ---
PT SLEEPING, NO S/S OF DISTRESS, DISCOMFORT OR AGITATION, RESPIRATIONS SPONTANEOUS, EVEN AND UNLABORED.
--- NOTE | 2018-11-19 16:40 | NUR ---
Pharmacy here to provide pt education on taking Elaquis. Pt given verbal instruction and handouts.
--- NOTE | 2018-11-19 17:35 | NUR ---
PT SLEEPING, NO S/S OF DISTRESS, DISCOMFORT OR AGITATION, RESPIRATIONS SPONTANEOUS, EVEN AND UNLABORED.
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
--- NOTE | 2018-11-19 18:46 | NUR ---
Patient appears to be sleeping, I was able to wake him easily when I introduced myself as his nurse ning and he stated that he was just waiting for his medicine.
[2018-11-19] MEDS: traZODone 50mg tablet PO SCH (21:00)
--- NOTE | 2018-11-19 21:30 | NUR ---
patient refused Trazadone.
--- NOTE | 2018-11-19 22:22 | NUR ---
Patient up to use the restroom.
--- NOTE | 2018-11-20 00:40 | NUR ---
Patient appears to be sleeping.
--- NOTE | 2018-11-20 02:54 | NUR ---
pt up to use restroom, asked for more Tramadol and then asked for Trazadone that was refused earlier.
--- NOTE | 2018-11-20 05:31 | NUR ---
Patient woken to have vitals.
--- NOTE | 2018-11-20 06:45 | NUR ---
Awake and ambulated to the bathroom without problem. Returned to bed and asked for his pain medication. States pain level in his leg is a 9. All morning medications administered as ordered, including Ultram.
[2018-11-20] MEDS: apixaban 5mg tablet PO SCH ×2 (06:47→19:01)
[2018-11-20] MEDS: OLANZapine 5mg rapidly disint. tablet PO SCH (06:49)
[2018-11-20] MEDS: traMADol 50MG tablet PO SCH ×2 (06:49→19:01)
--- NOTE | 2018-11-20 08:00 | NUR ---
Served breakfast. Ate 100% of his meal. Patient is quiet and withdrawn. Does not speak unless spoken to. Asked about his suicidal plan. Patient stated "I don't have a plan. I just want to ."
--- NOTE | 2018-11-20 09:00 | NUR ---
Opal from [facility] at bedside to talk with patient about outpatient supports available to him. Also spoke with patient about his overuse of alcohol. Patient states "People give me alcohol and then I go out of my head."
--- NOTE | 2018-11-20 10:00 | NUR ---
Asleep at this time. Color and breathing WNL. In line of sight of staff at all times.
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
--- NOTE | 2018-11-20 13:00 | NUR ---
Served lunch tray. Ate 100% of his meal. Up to the bathroom. Returned immediately to bed afterwards. Saline lock removed from left forearm without event.
--- NOTE | 2018-11-20 15:00 | NUR ---
Continues to sleep at this time. In no distress. In line of sight of staff.
--- NOTE | 2018-11-20 17:10 | NUR ---
Call received from [place] at [facility] for nurse to nurse report. Report given. Notified patient has a DVT. Patient not accepted for care.
[2018-11-20 17:52] VITALS: BP 115/74
[2018-11-20] MEDS ORDERED: LORazepam 1 MG tablet PO ONE (18:40)
--- NOTE | 2018-11-20 19:00 | NUR ---
Pt finished dinner and is requesting "something" for anxiety. New orders obtained.
--- NOTE | 2018-11-20 20:00 | NUR ---
Pt resting quietly, respirations normal, no s/s of distress.
[2018-11-20] MEDS: traZODone 50mg tablet PO SCH (21:00)
--- NOTE | 2018-11-20 21:00 | NUR ---
Pt resting quietly, respirations normal, no s/s of distress.
--- NOTE | 2018-11-20 21:55 | NUR ---
Pt resting quietly, respirations normal, no s/s of distress.
== END 2018-11-21 00:59 ==
LOC: ER 10:12
DX: F10.129 Alcohol abuse with intoxication, unspecified (principal); R41.82 Altered mental status, unspecified; G89.29 Other chronic pain; F41.9 Anxiety disorder, unspecified; F32.9 Major depressive disorder, single episode, unspecified; F20.9 Schizophrenia, unspecified; F12.90 Cannabis use, unspecified, uncomplicated; F15.90 Other stimulant use, unspecified, uncomplicated; F11.90 Opioid use, unspecified, uncomplicated; Z59.0 Homelessness; Z56.0 Unemployment, unspecified; Z86.711 Personal history of pulmonary embolism; Z86.718 Personal history of other venous thrombosis and embolism; Z88.6 Allergy status to analgesic agent; Z79.899 Other long term (current) drug therapy; Y90.0 Blood alcohol level of less than 20 mg/100 ml
CPT/HCPCS: 36415; 80053; 80305; 80320; 81003; 84443; 85025; 96360; 96361; 96372; 99285; J2060; J3486; J7030

== ENCOUNTER 2018-11-21 00:03 | Inpatient (IN) | payer MEDICAID ==
[~2018-11-21] VITALS: Ht 167.6 cm; Wt 82.3 kg
[~2018-11-21 00:03] MED LIST changes: -BENZ1TAB7 PO; -BUPR1TAB52 SL; -FLUO20CA22 PO; -OLAN10TA19 PO; -OLAN2.5T28 PO; +OLAN5TAB5 PO; +TRAZ-219 PO; -TRAZ-251 PO
[2018-11-21] MEDS ORDERED: magnesium hydroxide 30ml (MOM) UD suspension PO PRN (01:00)
[2018-11-21] MEDS ORDERED: loperamide 2mg capsule PO PRN (01:00)
[2018-11-21] MEDS ORDERED: mag hydrox/Alum hydrox/simeth 30ml oral suspension PO PRN (01:00)
[2018-11-21] MEDS ORDERED: acetaminophen 325mg tablet PO PRN (01:00)
[2018-11-21] MEDS: LORazepam 1 MG tablet PO PRN ×3 (01:48→13:12)
[2018-11-21] MEDS: traMADol 50MG tablet PO PRN ×3 (01:51→18:57)
[2018-11-21] MEDS: acetaminophen 325mg tablet PO PRN ×2 (01:55→13:14)
[2018-11-21 02:16] VITALS: BP 116/89
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
[2018-11-21] MEDS: apixaban 5mg tablet PO SCH ×2 (07:45→20:16)
[2018-11-21 08:00] VITALS: BP 109/68
[2018-11-21] MEDS ORDERED: OLANZAPINE 5 MG TABLET PO SCH (08:00)
[2018-11-21] MEDS ORDERED: tuberculin, purif. prot. deriv. 5 units/0.1ml ID ONE (10:00)
[2018-11-21] MEDS: nicotine 14mg patch - 24hr TD SCH (15:18)
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
[2018-11-21 19:29] VITALS: BP 131/65
[2018-11-21] MEDS: clonazePAM 1mg tablet PO PRN (20:16)
[2018-11-21] MEDS: OLANZAPINE 5 MG TABLET PO SCH (20:16)
[2018-11-21] MEDS: traZODone 50mg tablet PO SCH (20:16)
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
[2018-11-22] MEDS: traMADol 50MG tablet PO PRN ×4 (02:13→21:07)
[2018-11-22] MEDS: OLANZapine 2.5MG tablet PO SCH ×2 (07:06→12:56)
[2018-11-22] MEDS: clonazePAM 1mg tablet PO PRN ×3 (07:06→21:08)
[2018-11-22] MEDS: apixaban 5mg tablet PO SCH ×2 (07:06→21:00)
[2018-11-22] MEDS: FLUoxetine 20mg capsule PO SCH (07:06)
[2018-11-22] MEDS: acetaminophen 325mg tablet PO PRN ×2 (07:09→12:59)
[2018-11-22] MEDS: nicotine 14mg patch - 24hr TD SCH (07:10)
[2018-11-22 07:18] LABS: CHOL/HDL RATIO 1.9 (0.00-4.99); CHOLESTEROL 134 MG/DL (0-200); HDL CHOLESTEROL 69 MG/DL (35-60); LDL CHOLESTEROL 58 MG/DL (50-100); TRIGLYCERIDES 38 MG/DL (20-135)
[2018-11-22 08:16] VITALS: BP 133/80
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
[2018-11-22 19:17] VITALS: BP 119/85
[2018-11-22] MEDS: traZODone 50mg tablet PO SCH (21:00)
[2018-11-22] MEDS: OLANZAPINE 5 MG TABLET PO SCH (21:00)
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
[2018-11-23] MEDS: acetaminophen 325mg tablet PO PRN (05:22)
[2018-11-23] MEDS: FLUoxetine 20mg capsule PO SCH (07:37)
[2018-11-23] MEDS: apixaban 5mg tablet PO SCH ×2 (07:37→21:26)
[2018-11-23] MEDS: nicotine 14mg patch - 24hr TD SCH (07:37)
[2018-11-23] MEDS: clonazePAM 1mg tablet PO PRN ×2 (07:37→19:09)
[2018-11-23] MEDS: OLANZapine 2.5MG tablet PO SCH ×2 (07:37→13:12)
[2018-11-23] MEDS: traMADol 50MG tablet PO PRN (07:43)
[2018-11-23 08:00] VITALS: BP 143/107
[2018-11-23 08:15] VITALS: BP 143/107
[2018-11-23] MEDS: HYDROcodone/acetaminophen 10/325mg tab PO PRN ×2 (13:13→19:10)
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
[2018-11-23 20:00] VITALS: BP 130/84
[2018-11-23] MEDS: OLANZAPINE 5 MG TABLET PO SCH (21:26)
[2018-11-23] MEDS: traZODone 50mg tablet PO SCH (21:26)
[2018-11-24] MEDS: HYDROcodone/acetaminophen 10/325mg tab PO PRN ×3 (01:11→14:26)
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
[2018-11-24 08:00] VITALS: BP 131/83
[2018-11-24] MEDS: FLUoxetine 20mg capsule PO SCH (08:08)
[2018-11-24] MEDS: apixaban 5mg tablet PO SCH ×2 (08:08→20:00)
[2018-11-24] MEDS: OLANZapine 2.5MG tablet PO SCH ×2 (08:08→12:48)
[2018-11-24] MEDS: nicotine 14mg patch - 24hr TD SCH (08:11)
[2018-11-24] MEDS: clonazePAM 1mg tablet PO PRN ×2 (08:18→12:48)
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
[2018-11-24] MEDS ORDERED: ALPRAZolam 0.5mg tablet PO ONE (15:35)
[2018-11-24 20:00] VITALS: BP 136/81
[2018-11-24] MEDS ORDERED: buprenorphine/naloxone 2-0.5mg sublingual tablet SL ONE (20:05)
[2018-11-24] MEDS: traZODone 50mg tablet PO SCH (21:02)
[2018-11-24] MEDS: OLANZAPINE 5 MG TABLET PO SCH (21:03)
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
--- NOTE | 2018-11-25 01:29 | NUR ---
Patient has been medication compliant. He is sleeping quietly at this point.
[2018-11-25] MEDS: ALPRAZolam 0.5mg tablet PO PRN (05:47)
--- NOTE | 2018-11-25 05:48 | NUR ---
Patient is ambulating halls, complaining of acute anxiety. The patient is given xanax 1mg po.
[2018-11-25] MEDS: OLANZapine 2.5MG tablet PO SCH ×2 (07:27→12:30)
[2018-11-25] MEDS: FLUoxetine 20mg capsule PO SCH (07:28)
[2018-11-25] MEDS: buprenorphine/naloxone 2-0.5mg sublingual tablet SL SCH (07:28)
[2018-11-25] MEDS: apixaban 5mg tablet PO SCH ×2 (07:28→21:11)
[2018-11-25 07:57] VITALS: BP 125/80
[2018-11-25] MEDS: nicotine 14mg patch - 24hr TD SCH (08:00)
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
[2018-11-25 20:00] VITALS: BP 124/80
[2018-11-25] MEDS: OLANZAPINE 5 MG TABLET PO SCH (21:10)
[2018-11-25] MEDS: traZODone 50mg tablet PO SCH (21:11)
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
[2018-11-26] MEDS: FLUoxetine 20mg capsule PO SCH (07:37)
[2018-11-26] MEDS: apixaban 5mg tablet PO SCH ×2 (07:37→20:34)
[2018-11-26] MEDS: buprenorphine/naloxone 2-0.5mg sublingual tablet SL SCH ×2 (07:37→21:27)
[2018-11-26] MEDS: OLANZapine 2.5MG tablet PO SCH ×2 (07:37→12:43)
[2018-11-26] MEDS: nicotine 14mg patch - 24hr TD SCH (07:40)
[2018-11-26 08:00] VITALS: BP 130/90
[2018-11-26] MEDS: ALPRAZolam 0.5mg tablet PO PRN ×2 (08:19→17:45)
[2018-11-26] MEDS: multivitamins, therapeutics tablet PO SCH (09:43)
[2018-11-26] MEDS: LIDOcaine 5% patch TP PRN (09:44)
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
[2018-11-26 19:51] VITALS: BP 148/91
[2018-11-26] MEDS: OLANZAPINE 5 MG TABLET PO SCH (20:34)
[2018-11-26] MEDS: traZODone 50mg tablet PO SCH (21:00)
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
[2018-11-27] MEDS: ALPRAZolam 0.5mg tablet PO PRN ×3 (04:46→19:21)
[2018-11-27] MEDS: buprenorphine/naloxone 2-0.5mg sublingual tablet SL SCH ×2 (07:30→20:29)
[2018-11-27] MEDS: multivitamins, therapeutics tablet PO SCH (07:31)
[2018-11-27] MEDS: apixaban 5mg tablet PO SCH ×2 (07:31→20:29)
[2018-11-27] MEDS: OLANZapine 2.5MG tablet PO SCH ×2 (07:31→12:50)
[2018-11-27] MEDS: FLUoxetine 20mg capsule PO SCH (07:32)
[2018-11-27] MEDS: nicotine 14mg patch - 24hr TD SCH (07:33)
[2018-11-27 07:55] VITALS: BP 98/82
[2018-11-27] MEDS: LIDOcaine 5% patch TP PRN (10:03)
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
[2018-11-27] MEDS: OLANZAPINE 5 MG TABLET PO SCH (20:29)
[2018-11-27 20:32] VITALS: BP 143/83
[2018-11-27] MEDS: traZODone 50mg tablet PO SCH (21:00)
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
[2018-11-28] MEDS: acetaminophen 325mg tablet PO PRN (05:31)
[2018-11-28 07:42] VITALS: BP 124/83
[2018-11-28] MEDS: OLANZapine 2.5MG tablet PO SCH ×3 (08:35→20:31)
[2018-11-28] MEDS: apixaban 5mg tablet PO SCH ×2 (08:36→20:31)
[2018-11-28] MEDS: multivitamins, therapeutics tablet PO SCH (08:36)
[2018-11-28] MEDS: FLUoxetine 20mg capsule PO SCH (08:37)
[2018-11-28] MEDS: buprenorphine/naloxone 2-0.5mg sublingual tablet SL SCH ×2 (08:37→20:31)
[2018-11-28] MEDS: LIDOcaine 5% patch TP PRN (09:01)
[2018-11-28] MEDS: ALPRAZolam 0.5mg tablet PO PRN ×2 (09:01→15:11)
[2018-11-28] MEDS: nicotine 14mg patch - 24hr TD SCH (09:02)
--- NOTE | 2018-11-28 11:22 | NUR ---
Initial: Pt admit with depression and psychosis. Pt currently on regular diet with documented 100% PO intake throughout LOS meeting nutrient needs. Pt reports Etoh and drug use prior to admit, receiving routine MVI. LBM 11/26. No wounds. No nutrition diagnosis at this time. Will continue to follow. Recommendations: 1) Continue regular diet 2) MVI for reported Etoh hx 3) Routine bowel care 4) Weekly wt Addendum: 11/28/18 at [address] Amended: Links added.
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
[2018-11-28 19:47] VITALS: BP 117/77
[2018-11-28] MEDS: traZODone 50mg tablet PO SCH (20:41)
[2018-11-28] MEDS: OLANZAPINE 5 MG TABLET PO SCH (20:43)
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
[2018-11-29] MEDS: ALPRAZolam 0.5mg tablet PO PRN ×3 (02:53→20:43)
[2018-11-29 08:00] VITALS: BP 140/70
[2018-11-29] MEDS: nicotine 14mg patch - 24hr TD SCH (08:21)
[2018-11-29] MEDS: LIDOcaine 5% patch TP PRN (08:21)
[2018-11-29] MEDS: multivitamins, therapeutics tablet PO SCH (08:22)
[2018-11-29] MEDS: buprenorphine/naloxone 2-0.5mg sublingual tablet SL SCH ×2 (08:22→20:43)
[2018-11-29] MEDS: apixaban 5mg tablet PO SCH ×2 (08:22→20:43)
[2018-11-29] MEDS: FLUoxetine 20mg capsule PO SCH (08:22)
[2018-11-29] MEDS: OLANZapine 2.5MG tablet PO SCH ×2 (08:22→13:23)
[2018-11-29] MEDS: acetaminophen 325mg tablet PO PRN (12:28)
[2018-11-29 20:00] VITALS: BP 111/68
[2018-11-29] MEDS: OLANZAPINE 5 MG TABLET PO SCH (20:43)
[2018-11-29] MEDS: traZODone 50mg tablet PO SCH (20:46)
--- NOTE | 2018-11-30 02:50 | NUR ---
Disregard note below.. KK
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
[2018-11-30] MEDS: acetaminophen 325mg tablet PO PRN ×2 (05:29→19:26)
[2018-11-30] MEDS: ALPRAZolam 0.5mg tablet PO PRN ×3 (05:52→19:25)
[2018-11-30] MEDS: FLUoxetine 20mg capsule PO SCH (07:27)
[2018-11-30] MEDS: buprenorphine/naloxone 2-0.5mg sublingual tablet SL SCH ×2 (07:27→20:48)
[2018-11-30] MEDS: OLANZapine 2.5MG tablet PO SCH ×2 (07:28→12:42)
[2018-11-30] MEDS: multivitamins, therapeutics tablet PO SCH (07:28)
[2018-11-30] MEDS: apixaban 5mg tablet PO SCH ×2 (07:28→20:48)
[2018-11-30] MEDS: nicotine 14mg patch - 24hr TD SCH (07:31)
[2018-11-30 08:00] VITALS: BP 128/76
[2018-11-30] MEDS: LIDOcaine 5% patch TP PRN (08:28)
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
[2018-11-30] MEDS: ibuprofen 200mg tablet PO PRN (17:29)
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
[2018-11-30 20:00] VITALS: BP 117/74
[2018-11-30] MEDS: clindamycin 150mg capsule PO SCH (20:48)
[2018-11-30] MEDS: OLANZAPINE 5 MG TABLET PO SCH (20:48)
[2018-11-30] MEDS: traZODone 50mg tablet PO SCH (23:04)
[2018-12-01] MEDS: clindamycin 150mg capsule PO SCH ×5 (02:23→20:52)
[2018-12-01] MEDS: ALPRAZolam 0.5mg tablet PO PRN ×2 (05:39→19:48)
[2018-12-01] MEDS: ibuprofen 200mg tablet PO PRN ×2 (05:39→15:14)
--- NOTE | 2018-12-01 05:41 | NUR ---
Patient is awake. He complains of anxiety and tooth pain. PO Xanax and Motrin given.
[2018-12-01] MEDS: OLANZapine 2.5MG tablet PO SCH ×2 (07:37→12:45)
[2018-12-01] MEDS: multivitamins, therapeutics tablet PO SCH (07:37)
[2018-12-01] MEDS: buprenorphine/naloxone 2-0.5mg sublingual tablet SL SCH (07:37)
[2018-12-01] MEDS: FLUoxetine 20mg capsule PO SCH (07:37)
[2018-12-01] MEDS: apixaban 5mg tablet PO SCH ×2 (07:37→20:53)
[2018-12-01] MEDS: nicotine 14mg patch - 24hr TD SCH (07:41)
[2018-12-01 08:00] VITALS: BP 130/85
[2018-12-01 08:05] VITALS: BP 112/62
[2018-12-01] MEDS: LIDOcaine 5% patch TP PRN (08:42)
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
[2018-12-01 20:00] VITALS: BP 122/71
[2018-12-01] MEDS: lactobacillus rhamnosus 10,000 MMU CELLS/CAPSULE PO SCH (20:52)
[2018-12-01] MEDS: OLANZAPINE 5 MG TABLET PO SCH (20:52)
[2018-12-01] MEDS: buprenorphine/naloxone 8mg/2mg SL tablet SL SCH (20:52)
[2018-12-01] MEDS: acetaminophen 325mg tablet PO PRN (20:53)
[2018-12-01] MEDS: traZODone 50mg tablet PO SCH (22:07)
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
[2018-12-02] MEDS: clindamycin 150mg capsule PO SCH ×4 (02:00→20:46)
[2018-12-02] MEDS: ALPRAZolam 0.5mg tablet PO PRN ×3 (06:40→21:31)
[2018-12-02] MEDS: lactobacillus rhamnosus 10,000 MMU CELLS/CAPSULE PO SCH ×2 (07:27→20:44)
[2018-12-02] MEDS: multivitamins, therapeutics tablet PO SCH (07:27)
[2018-12-02] MEDS: OLANZapine 2.5MG tablet PO SCH ×2 (07:28→13:20)
[2018-12-02] MEDS: apixaban 5mg tablet PO SCH ×2 (07:28→20:43)
[2018-12-02] MEDS: FLUoxetine 20mg capsule PO SCH (07:28)
[2018-12-02] MEDS: buprenorphine/naloxone 8mg/2mg SL tablet SL SCH ×2 (07:28→20:44)
[2018-12-02] MEDS: nicotine 14mg patch - 24hr TD SCH (07:34)
[2018-12-02] MEDS: LIDOcaine 5% patch TP PRN (07:34)
[2018-12-02 08:00] VITALS: BP 121/74
[2018-12-02] MEDS: ibuprofen 200mg tablet PO PRN (11:54)
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
[2018-12-02 20:00] VITALS: BP 121/74
[2018-12-02] MEDS: OLANZAPINE 5 MG TABLET PO SCH (20:44)
[2018-12-02] MEDS: traZODone 50mg tablet PO SCH (21:59)
[2018-12-03] MEDS: clindamycin 150mg capsule PO SCH ×4 (02:00→20:13)
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
[2018-12-03] MEDS: ALPRAZolam 0.5mg tablet PO PRN ×3 (06:47→20:14)
[2018-12-03] MEDS: nicotine 14mg patch - 24hr TD SCH (07:57)
[2018-12-03 08:00] VITALS: BP 115/56
[2018-12-03] MEDS: lactobacillus rhamnosus 10,000 MMU CELLS/CAPSULE PO SCH ×2 (08:00→20:14)
[2018-12-03] MEDS: apixaban 5mg tablet PO SCH ×2 (08:00→20:14)
[2018-12-03] MEDS: buprenorphine/naloxone 8mg/2mg SL tablet SL SCH ×2 (08:01→20:14)
[2018-12-03] MEDS: OLANZapine 2.5MG tablet PO SCH ×2 (08:01→12:06)
[2018-12-03] MEDS: multivitamins, therapeutics tablet PO SCH (08:01)
[2018-12-03] MEDS: FLUoxetine 20mg capsule PO SCH (08:01)
[2018-12-03] MEDS: ibuprofen 200mg tablet PO PRN ×2 (12:06→20:13)
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
[2018-12-03 19:57] VITALS: BP 104/53
[2018-12-03] MEDS: OLANZAPINE 5 MG TABLET PO SCH (20:13)
[2018-12-03] MEDS: traZODone 50mg tablet PO SCH (21:00)
[2018-12-04] MEDS: clindamycin 150mg capsule PO SCH ×4 (01:50→20:13)
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
[2018-12-04] MEDS: ALPRAZolam 0.5mg tablet PO PRN ×3 (05:38→20:24)
[2018-12-04 07:40] VITALS: BP 113/74
[2018-12-04] MEDS: lactobacillus rhamnosus 10,000 MMU CELLS/CAPSULE PO SCH ×2 (08:09→20:12)
[2018-12-04] MEDS: FLUoxetine 20mg capsule PO SCH (08:09)
[2018-12-04] MEDS: OLANZapine 2.5MG tablet PO SCH ×2 (08:10→12:52)
[2018-12-04] MEDS: apixaban 5mg tablet PO SCH ×2 (08:10→20:14)
[2018-12-04] MEDS: multivitamins, therapeutics tablet PO SCH (08:10)
[2018-12-04] MEDS: buprenorphine/naloxone 8mg/2mg SL tablet SL SCH ×2 (08:10→20:14)
[2018-12-04] MEDS: nicotine 14mg patch - 24hr TD SCH (08:13)
[2018-12-04] MEDS: LIDOcaine 5% patch TP PRN (08:18)
[2018-12-04] MEDS: ibuprofen 200mg tablet PO PRN (09:25)
--- NOTE | 2018-12-04 14:31 | NUR ---
DISCHARGE PLANNING: SW emailed and called [facility] regarding pt discharge. SW left message requesting return contact. SW also informed team that pt will be discharging w/in the next 24-48 hours. Ely Merrill, Service Order Clerk CUSTOMER SUPPORT ANALYST [id number] Supervised by Fracisco Maldonado, [id number]
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
[2018-12-04 20:04] VITALS: BP 123/71
[2018-12-04] MEDS: OLANZAPINE 5 MG TABLET PO SCH (20:13)
[2018-12-04] MEDS: traZODone 50mg tablet PO SCH (20:14)
[2018-12-05] MEDS: clindamycin 150mg capsule PO SCH ×2 (02:14→07:27)
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
[2018-12-05] MEDS: nicotine 14mg patch - 24hr TD SCH (07:26)
[2018-12-05] MEDS: multivitamins, therapeutics tablet PO SCH (07:27)
[2018-12-05] MEDS: apixaban 5mg tablet PO SCH ×2 (07:27→20:05)
[2018-12-05] MEDS: lactobacillus rhamnosus 10,000 MMU CELLS/CAPSULE PO SCH ×2 (07:27→20:05)
[2018-12-05] MEDS: OLANZapine 2.5MG tablet PO SCH ×2 (07:27→11:55)
[2018-12-05] MEDS: FLUoxetine 20mg capsule PO SCH (07:27)
[2018-12-05] MEDS: buprenorphine/naloxone 8mg/2mg SL tablet SL SCH ×2 (07:27→20:07)
[2018-12-05 08:00] VITALS: BP 106/63
--- NOTE | 2018-12-05 15:15 | NUR ---
DISCHARGE PLANNING: SW made contact w/ pt Chemical Equipment Controller, Daljit Dean, who reports he is working w/ probation to learn of possible tx program for pt in [place]. He agreed to meet w/ pt this day in the afternoon. SW informed pt and instructed pt to contact probation. Daljit came to unit to meet w/ pt and discussed tx options. Pt states he is willing to attempt tx through [facility] if there are no other services. LAQUITA discussed this w/ Daljit, who agrees to coordinate transportation and transition w/ pt to tx center. Ely Merrill, Economics Analyst WEDGER MACHINE [id number] Supervised by Fracisco Maldonado, [id number]
--- NOTE | 2018-12-05 16:35 | NUR ---
Initial: Pt admit with depression and psychosis. Pt currently on regular diet with documented 75-100% PO intake throughout LOS meeting nutrient needs. Pt reports Etoh and drug use prior to admit, receiving routine MVI. [facility] 12/05. No wounds. No nutrition diagnosis at this time. Will continue to follow. Recommendations: 1) Continue regular diet 2) MVI for reported Etoh hx 3) bowel care as needed 4) Weekly wt Addendum: 12/05/18 at [address] Amended: Links added.
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
[2018-12-05 19:40] VITALS: BP 98/48
[2018-12-05] MEDS: traZODone 50mg tablet PO SCH (20:06)
[2018-12-05] MEDS: OLANZAPINE 5 MG TABLET PO SCH (20:06)
[2018-12-05] MEDS: ibuprofen 200mg tablet PO PRN (20:51)
[2018-12-05] MEDS: hydrOXYzine 25 MG tablet PO PRN (21:11)
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
[2018-12-06] MEDS: hydrOXYzine 25 MG tablet PO PRN (06:13)
[2018-12-06] MEDS: ibuprofen 200mg tablet PO PRN ×2 (07:20→12:10)
[2018-12-06] MEDS: nicotine 14mg patch - 24hr TD SCH (07:23)
[2018-12-06 07:30] VITALS: BP 124/70
[2018-12-06] MEDS: FLUoxetine 20mg capsule PO SCH (07:40)
[2018-12-06] MEDS: multivitamins, therapeutics tablet PO SCH (07:40)
[2018-12-06] MEDS: OLANZapine 2.5MG tablet PO SCH ×2 (07:41→12:08)
[2018-12-06] MEDS: lactobacillus rhamnosus 10,000 MMU CELLS/CAPSULE PO SCH ×2 (07:41→20:02)
[2018-12-06] MEDS: apixaban 5mg tablet PO SCH ×2 (07:41→20:02)
[2018-12-06] MEDS: buprenorphine/naloxone 8mg/2mg SL tablet SL SCH ×2 (07:42→20:03)
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
[2018-12-06 19:49] VITALS: BP 123/74
[2018-12-06] MEDS: traZODone 50mg tablet PO SCH (20:03)
[2018-12-06] MEDS: OLANZAPINE 5 MG TABLET PO SCH (20:03)
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
[2018-12-07] MEDS: OLANZapine 2.5MG tablet PO SCH ×2 (07:57→12:55)
[2018-12-07] MEDS: lactobacillus rhamnosus 10,000 MMU CELLS/CAPSULE PO SCH (07:57)
[2018-12-07] MEDS: nicotine 14mg patch - 24hr TD SCH (07:57)
[2018-12-07] MEDS: multivitamins, therapeutics tablet PO SCH (07:57)
[2018-12-07] MEDS: buprenorphine/naloxone 8mg/2mg SL tablet SL SCH (07:57)
[2018-12-07] MEDS: apixaban 5mg tablet PO SCH (07:57)
[2018-12-07] MEDS: FLUoxetine 20mg capsule PO SCH (07:57)
[2018-12-07] MEDS ORDERED: NICO-631 TD (08:02)
[2018-12-07] MEDS ORDERED: HYDR-3686 PO (08:02)
[2018-12-07] MEDS ORDERED: FLUO40CA10 PO (08:02)
[2018-12-07] MEDS ORDERED: OLAN5TAB26 PO (08:02)
[2018-12-07] MEDS ORDERED: TRAZ-251 PO (08:02)
[2018-12-07] MEDS ORDERED: APIX5TAB3 PO (08:02)
[2018-12-07] MEDS ORDERED: BUPR1TAB36 SL (08:02)
[2018-12-07 08:13] VITALS: BP 93/51
--- NOTE | 2018-12-07 09:49 | NUR ---
left lower extremity (calf dimensions) 10cm below patela: 47cm 20cm below patela: 38cm
[2018-12-07] MEDS: hydrOXYzine 25 MG tablet PO PRN (11:16)
[2018-12-07] MEDS: acetaminophen 325mg tablet PO PRN (11:17)
--- NOTE | 2018-12-07 15:49 | NUR ---
Discharge Note: Pt dc'd to [facility] at 1410. He was picked up by racecar driverDaljit. He was escorted to car by staff. D/c instructions, including all f/u and medications, explained to the pt and he verbalized understanding, signed and was given a copy. All medications sent with the patient. All belongings returned to the patient and he agreed he received all his stuff and signed as having received. Pt given smoking cessation education and f/u resources.
== END 2018-12-07 14:10 | disposition short-term general hospital (02) | DRG 754 ==
LOC: ADULT MH 00:03
PROVIDERS: ADMIT Psychiatry & Neurology Psychiatry; ATTEND Psychiatry & Neurology Psychiatry
PROC: 0PSVXZZ Reposition Left Finger Phalanx, External Approach (ICD-10-PCS; principal; 2018-11-23)
DX: F32.9 Major depressive disorder, single episode, unspecified (principal); D68.51 Activated protein C resistance; F11.20 Opioid dependence, uncomplicated; F15.20 Other stimulant dependence, uncomplicated; F20.9 Schizophrenia, unspecified; R45.851 Suicidal ideations; M41.9 Scoliosis, unspecified; F10.229 Alcohol dependence with intoxication, unspecified; S62.617A Displaced fracture of proximal phalanx of left little finger, initial encounter for closed fracture; W22.8XXA Striking against or struck by other objects, initial encounter; G89.29 Other chronic pain; F12.10 Cannabis abuse, uncomplicated; M54.9 Dorsalgia, unspecified; F41.9 Anxiety disorder, unspecified; F41.8 Other specified anxiety disorders; Z59.0 Homelessness; Z65.3 Problems related to other legal circumstances; Z86.711 Personal history of pulmonary embolism; Z87.891 Personal history of nicotine dependence; Z76.5 Malingerer [conscious simulation]; Z79.899 Other long term (current) drug therapy; Y93.89 Activity, other specified; Y92.89 Other specified places as the place of occurrence of the external cause; Y99.8 Other external cause status
CPT/HCPCS: 36415; 73120; 73130; 80061; 87081; Z7610

== ENCOUNTER 2018-12-14 13:03 | Emergency (ER) | payer MEDICAID ==
[~2018-12-14] VITALS: Ht 165.1 cm; Wt 75.0 kg
[~2018-12-14 13:03] MED LIST changes: +BUPR1TAB36 SL; +FLUO40CA10 PO; +HYDR-3686 PO; +NICO-631 TD; +OLAN5TAB26 PO; -OLAN5TAB5 PO; -TRAZ-219 PO; +TRAZ-251 PO
[2018-12-14 13:33] VITALS: BP 140/91
[2018-12-14] MEDS ORDERED: LORazepam 1 MG tablet PO ONE (13:55)
--- NOTE | 2018-12-14 13:55 | NUR ---
PT BEING DC'D, 5150 THAT WAS WRITTEN BY [facility] CLINICIAN NOT VALID NO INDICATION MARKED FOR CRITERIA FOR NEED. PT EVALUATED BY MD AND FOUND NO INDICATION REQUIRING PT HOLD. PT CONTINUES TO DENIE SI/HI. PT ABLE TO STATE WHERE HE CAN GO FOR FOOD OR JAIL AND IN NO OBSERVABLE DISTRESS INDICATING INABLITY TO ATTAIN NEEDS.
[2018-12-15] MEDS ORDERED: NO HOME MEDS (17:36)
[2018-12-15] MEDS ORDERED: APIX5TAB3 PO (21:02)
== END 2018-12-14 15:18 | disposition home or self-care (01) ==
LOC: ER 13:04
DX: T73.0XXA Starvation, initial encounter (principal); G89.29 Other chronic pain; F41.9 Anxiety disorder, unspecified; F32.9 Major depressive disorder, single episode, unspecified; F20.9 Schizophrenia, unspecified; F12.90 Cannabis use, unspecified, uncomplicated; F15.90 Other stimulant use, unspecified, uncomplicated; F11.90 Opioid use, unspecified, uncomplicated; F10.99 Alcohol use, unspecified with unspecified alcohol-induced disorder; Z86.718 Personal history of other venous thrombosis and embolism; Z86.711 Personal history of pulmonary embolism; Z56.0 Unemployment, unspecified; Z59.0 Homelessness; Z88.8 Allergy status to other drugs, medicaments and biological substances; Z79.899 Other long term (current) drug therapy; X58.XXXA Exposure to other specified factors, initial encounter; Y93.89 Activity, other specified; Y92.89 Other specified places as the place of occurrence of the external cause; Y99.8 Other external cause status; Y90.9 Presence of alcohol in blood, level not specified
CPT/HCPCS: 99283

== ENCOUNTER 2018-12-15 12:33 | Emergency (ER) | payer MEDICAID ==
[~2018-12-15] VITALS: Ht 165.1 cm; Wt 76.0 kg
--- NOTE | 2018-12-15 12:42 | NUR ---
CLAU CHARGE NURSE NOTIFIED PT SI AND PREVIOUSLY HAD TO BE ESCORTED OUT YESTERDAY PT PLACED IN T2, SECURITY CALLED CHRIS AND NEVAEH
--- NOTE | 2018-12-15 14:30 | NUR ---
pt brought over from main ED and placed in bed 22.
--- NOTE | 2018-12-15 14:57 | NUR ---
Pt states he is no longer taking any of his listed medications.
--- NOTE | 2018-12-15 15:25 | NUR ---
Pt states his left leg is very painful and had requested tramadol from the MD. Pt just had blood drawn. Awaiting results.
[2018-12-15 15:29] LABS: BASOPHILS % (AUTO) 0.6 % (0-1); EOSINOPHILS # (AUTO) 0.1 X10'3 (0-0.9); EOSINOPHILS % (AUTO) 1.1 % (0-6); HEMATOCRIT 35.9 % (42.0-52.0); HEMOGLOBIN 12.3 g/dl (14.0-17.9); LYMPHOCYTES # (AUTO) 1.9 X10'3 (1.1-4.8); LYMPHOCYTES % (AUTO) 32.8 % (21-51); MEAN CORPUSCULAR HEMOGLOBIN 31.7 PG (27.0-31.0); MEAN CORPUSCULAR HGB CONC 34.2 g/dL (33.0-36.5); MEAN CORPUSCULAR VOLUME 92.7 FL (78-98); MEAN PLATELET VOLUME 6.9 FL (7.4-10.4); MONOCYTES # (AUTO) 0.6 X10'3 (0-0.9); MONOCYTES % (AUTO) 10.5 % (2-12); NEUTROPHILS # (AUTO) 3.2 X10'3 (1.8-7.7); PLATELET COUNT 241 X10'3 (140-440); RED BLOOD COUNT 3.87 X10'6 (4.70-6.10); RED CELL DISTRIBUTION WIDTH 14.3 % (11.5-14.5); WHITE BLOOD COUNT 5.9 X10'3 (4.5-11.0)
[2018-12-15 15:39] LABS: ALANINE AMINOTRANSFERASE 94 U/L (12-78); ALBUMIN 3.4 G/DL (3.4-5.0); ALBUMIN/GLOBULIN RATIO 0.8 (1.1-1.5); ALKALINE PHOSPHATASE 94 IU/L (46-116); ANION GAP 10 (8-16); ASPARTATE AMINO TRANSFERASE 76 U/L (10-37); BILIRUBIN,TOTAL 0.5 MG/DL (0.1-1.0); BLOOD UREA NITROGEN 10 MG/DL (7-18); BUN/CREATININE RATIO 12.5 (5.4-32.0); CALCIUM 8.4 MG/DL (8.5-10.1); CHLORIDE 105 MMOL/L (99-107); ETHANOL 0.072 GM/DL (0.0-0.010); GLUCOSE 83 MG/DL (70-104); POTASSIUM 3.6 MMOL/L (3.5-5.1); SODIUM 139 MMOL/L (135-145); TOTAL CARBON DIOXIDE 24.2 MMOL/L (24-32); TOTAL PROTEIN 7.6 G/DL (6.4-8.2); eGFR > 90 ML/MIN
[2018-12-15 15:40] LABS: ACETAMINOPHEN < 2.0 UG/ML (10-30)
[2018-12-15 15:49] LABS: URINE AMPHETAMINE SCREEN POSITIVE (Neg); URINE BARBITUATE SCREEN NEGATIVE (Neg); URINE BENZODIAZEPINES SCREEN NEGATIVE (Neg); URINE CANNABINOID SCREEN POSITIVE (Neg); URINE COCAINE SCREEN NEGATIVE (Neg); URINE METHADONE SCREEN NEGATIVE (Neg); URINE OPIATE SCREEN POSITIVE (Neg); URINE PHENCYCLIDINE SCREEN NEGATIVE (Neg)
[2018-12-15] MEDS ORDERED: traMADol 50MG tablet PO ONE (15:50)
[2018-12-15] MEDS ORDERED: NO HOME MEDS (17:36)
--- NOTE | 2018-12-15 18:15 | NUR ---
Received report from MARY Sellers. Patient is awake and alert on room air, in no apparent distress. In nurse's view. Will continue to monitor.
[2018-12-15] MEDS ORDERED: LORazepam 1 MG tablet PO ONE (19:10)
[2018-12-15] MEDS ORDERED: APIX5TAB3 PO (21:02)
--- NOTE | 2018-12-15 21:39 | NUR ---
Packet sent to [facility]. Confirmed receipt of packet with Ximena Fallon FEMI office.
[2018-12-15] MEDS: apixaban 5mg tablet PO SCH (21:45)
--- NOTE | 2018-12-15 21:45 | NUR ---
Patient refused Eliquis for the night.
--- NOTE | 2018-12-15 23:24 | NUR ---
Patient must NOT be out of bed unless he agrees to take Eliquis.
[2018-12-16 05:30] VITALS: BP 125/83
--- NOTE | 2018-12-16 07:25 | NUR ---
Pt got out of bed and asked if he could use the restroom. RN told pt that he was not to be out of bed since he would not take the blood thinner for his DVT. Pt walked straight to the bathrooom as he said I can walk if I want to. Pt proceeded to the BR.
--- NOTE | 2018-12-16 07:36 | NUR ---
Pt requesting tramadol for pain in left leg. Left leg edematous, + pedal pulse no redness or extra warmth noted.
[2018-12-16] MEDS ORDERED: traMADol 50MG tablet PO ONE (07:40)
[2018-12-16] MEDS: apixaban 5mg tablet PO SCH (07:51)
--- NOTE | 2018-12-16 08:58 | NUR ---
BREAK RELIEF RN: PT RESTING ON LEFT SIDE, EYES CLOSED, RR EQUAL AND UNLABORED
--- NOTE | 2018-12-16 11:42 | NUR ---
[facility] evaluated pt and releases pt to be discharged.
== END 2018-12-16 12:21 ==
LOC: ER 12:34
DX: R45.851 Suicidal ideations (principal); R22.42 Localized swelling, mass and lump, left lower limb; G89.29 Other chronic pain; F41.9 Anxiety disorder, unspecified; F32.9 Major depressive disorder, single episode, unspecified; F20.9 Schizophrenia, unspecified; F12.90 Cannabis use, unspecified, uncomplicated; F15.90 Other stimulant use, unspecified, uncomplicated; F11.90 Opioid use, unspecified, uncomplicated; Z86.711 Personal history of pulmonary embolism; Z86.718 Personal history of other venous thrombosis and embolism; Z56.0 Unemployment, unspecified; Z59.0 Homelessness; Z88.8 Allergy status to other drugs, medicaments and biological substances; Z79.899 Other long term (current) drug therapy
CPT/HCPCS: 36415; 80053; 80305; 80320; 80329; 85025; 93971; 99284

== ENCOUNTER 2018-12-20 13:14 | Emergency (ER) | payer MEDICAID ==
[~2018-12-20] VITALS: Ht 162.6 cm; Wt 76.0 kg
[~2018-12-20 13:14] MED LIST changes: -BUPR1TAB36 SL; -FLUO40CA10 PO; -HYDR-3686 PO; -NICO-631 TD; +NO HOME MEDS; -OLAN5TAB26 PO; -TRAZ-251 PO
[2018-12-20 14:15] VITALS: BP 129/92
[2018-12-20] MEDS ORDERED: PENI500T2 PO (15:06)
[2018-12-20] MEDS ORDERED: ACET-2119 PO (15:07)
== END 2018-12-20 15:23 | disposition home or self-care (01) ==
LOC: ER 13:15
DX: S02.5XXA Fracture of tooth (traumatic), initial encounter for closed fracture (principal); K05.10 Chronic gingivitis, plaque induced; K04.7 Periapical abscess without sinus; R11.2 Nausea with vomiting, unspecified; G89.29 Other chronic pain; F41.9 Anxiety disorder, unspecified; F32.9 Major depressive disorder, single episode, unspecified; F20.9 Schizophrenia, unspecified; F12.90 Cannabis use, unspecified, uncomplicated; F15.90 Other stimulant use, unspecified, uncomplicated; F11.90 Opioid use, unspecified, uncomplicated; F10.99 Alcohol use, unspecified with unspecified alcohol-induced disorder; Z86.711 Personal history of pulmonary embolism; Z86.718 Personal history of other venous thrombosis and embolism; Z59.0 Homelessness; Z56.0 Unemployment, unspecified; Z88.8 Allergy status to other drugs, medicaments and biological substances; Z79.899 Other long term (current) drug therapy; X58.XXXA Exposure to other specified factors, initial encounter; Y93.89 Activity, other specified; Y92.89 Other specified places as the place of occurrence of the external cause; Y99.8 Other external cause status; Y90.9 Presence of alcohol in blood, level not specified
CPT/HCPCS: 99283

== ENCOUNTER 2018-12-31 15:01 | Emergency (ER) | payer MEDICAID ==
[~2018-12-31] VITALS: Ht 167.6 cm; Wt 69.0 kg
[~2018-12-31 15:01] MED LIST changes: +ACET-2119 PO; +PENI500T2 PO
[2018-12-31 15:07] VITALS: BP 120/96
== END 2018-12-31 15:34 | disposition home or self-care (01) ==
LOC: ER 15:02
DX: R20.2 Paresthesia of skin (principal); G89.29 Other chronic pain; F41.9 Anxiety disorder, unspecified; F32.9 Major depressive disorder, single episode, unspecified; F20.9 Schizophrenia, unspecified; F12.90 Cannabis use, unspecified, uncomplicated; F15.90 Other stimulant use, unspecified, uncomplicated; F11.90 Opioid use, unspecified, uncomplicated; F10.99 Alcohol use, unspecified with unspecified alcohol-induced disorder; Z86.711 Personal history of pulmonary embolism; Z86.718 Personal history of other venous thrombosis and embolism; Z98.890 Other specified postprocedural states; Z56.0 Unemployment, unspecified; Z59.0 Homelessness; Z88.5 Allergy status to narcotic agent; Z79.899 Other long term (current) drug therapy; Y90.9 Presence of alcohol in blood, level not specified
CPT/HCPCS: 99281

== ENCOUNTER 2019-02-02 12:48 | Emergency (ER) | payer MEDICAID ==
[~2019-02-02] VITALS: Ht 170.2 cm; Wt 72.8 kg
[~2019-02-02 12:48] MED LIST changes: -PENI500T2 PO
[2019-02-02 16:24] VITALS: BP 130/89
[2019-02-02] MEDS ORDERED: acetaminophen 325mg tablet PO ONE (16:30)
== END 2019-02-02 16:50 | disposition home or self-care (01) ==
LOC: ER 12:49
DX: S81.001A Unspecified open wound, right knee, initial encounter (principal); I82.4Z2 Acute embolism and thrombosis of unspecified deep veins of left distal lower extremity; F20.9 Schizophrenia, unspecified; F31.9 Bipolar disorder, unspecified; F12.90 Cannabis use, unspecified, uncomplicated; G89.29 Other chronic pain; F41.9 Anxiety disorder, unspecified; F15.90 Other stimulant use, unspecified, uncomplicated; F10.99 Alcohol use, unspecified with unspecified alcohol-induced disorder; F11.90 Opioid use, unspecified, uncomplicated; Z86.711 Personal history of pulmonary embolism; Z56.0 Unemployment, unspecified; Z59.0 Homelessness; Z98.890 Other specified postprocedural states; Z88.8 Allergy status to other drugs, medicaments and biological substances; Z79.899 Other long term (current) drug therapy; W57.XXXA Bitten or stung by nonvenomous insect and other nonvenomous arthropods, initial encounter; Y93.89 Activity, other specified; Y92.89 Other specified places as the place of occurrence of the external cause; Y99.8 Other external cause status; Y90.9 Presence of alcohol in blood, level not specified
CPT/HCPCS: 99284

== ENCOUNTER 2019-02-06 11:50 | Emergency (ER) | payer MEDICAID | END 2019-02-06 12:27 | disposition left against medical advice (07) | LOC: ER 11:51 | DX: M79.606 Pain in leg, unspecified (principal); Z53.21 Procedure and treatment not carried out due to patient leaving prior to being seen by health care provider ==

== ENCOUNTER 2019-06-18 15:24 | Emergency (ER) | payer MEDICAID ==
[~2019-06-18] VITALS: Ht 170.2 cm; Wt 77.6 kg
[2019-06-18 15:49] VITALS: BP 136/81
[2019-06-18] MEDS ORDERED: LORA-269 PO (19:33)
[2019-06-18] MEDS ORDERED: GABA300C PO (19:33)
--- NOTE | 2019-06-18 19:40 | NUR ---
Contacted [facility] and [facility] to arrange transportation and late admittance to the facility.
--- NOTE | 2019-06-18 19:40 | NUR ---
Pt has no physical complaints.
== END 2019-06-18 19:44 | disposition home or self-care (01) ==
LOC: ER 15:25
DX: F10.10 Alcohol abuse, uncomplicated (principal); F15.10 Other stimulant abuse, uncomplicated; F41.9 Anxiety disorder, unspecified; F32.9 Major depressive disorder, single episode, unspecified; F20.9 Schizophrenia, unspecified; G89.29 Other chronic pain; F11.90 Opioid use, unspecified, uncomplicated; F19.90 Other psychoactive substance use, unspecified, uncomplicated; F12.90 Cannabis use, unspecified, uncomplicated; Z86.711 Personal history of pulmonary embolism; Z86.718 Personal history of other venous thrombosis and embolism; Z59.0 Homelessness; Z56.0 Unemployment, unspecified; Z79.01 Long term (current) use of anticoagulants; Z88.8 Allergy status to other drugs, medicaments and biological substances; Z79.899 Other long term (current) drug therapy
CPT/HCPCS: 99283

== ENCOUNTER 2019-07-16 10:27 | Emergency (ER) | payer MEDICAID ==
[~2019-07-16] VITALS: Ht 165.1 cm; Wt 80.0 kg
[~2019-07-16 10:27] MED LIST changes: +GABA300C PO; +LORA-269 PO
--- NOTE | 2019-07-16 11:27 | NUR ---
left calf measures 47 cm
[2019-07-16 12:14] VITALS: BP 133/76
[2019-07-16 12:15] LABS: BASOPHILS # (AUTO) 0.1 X10'3 (0-0.2); BASOPHILS % (AUTO) 0.9 % (0-1); EOSINOPHILS # (AUTO) 0.1 X10'3 (0-0.9); HEMATOCRIT 38.6 % (42.0-52.0); HEMOGLOBIN 13.3 g/dl (14.0-17.9); LYMPHOCYTES # (AUTO) 2.3 X10'3 (1.1-4.8); MEAN CORPUSCULAR HEMOGLOBIN 31.8 PG (27.0-31.0); MEAN CORPUSCULAR HGB CONC 34.6 g/dL (33.0-36.5); MEAN PLATELET VOLUME 7.1 FL (7.4-10.4); MONOCYTES # (AUTO) 0.5 X10'3 (0-0.9); NEUTROPHILS # (AUTO) 2.6 X10'3 (1.8-7.7); NEUTROPHILS % (AUTO) 47.1 % (42-75); PLATELET COUNT 273 X10'3 (140-440); RED CELL DISTRIBUTION WIDTH 12.7 % (11.5-14.5); WHITE BLOOD COUNT 5.6 X10'3 (4.5-11.0)
[2019-07-16 12:24] LABS: ALANINE AMINOTRANSFERASE 93 U/L (12-78); ALBUMIN/GLOBULIN RATIO 0.9 (1.1-1.5); ALKALINE PHOSPHATASE 89 IU/L (46-116); ANION GAP 7 (8-16); ASPARTATE AMINO TRANSFERASE 70 U/L (10-37); BILIRUBIN,TOTAL 0.6 MG/DL (0.1-1.0); BLOOD UREA NITROGEN 16 MG/DL (7-18); BUN/CREATININE RATIO 18.2 (5.4-32.0); CALCIUM 8.8 MG/DL (8.5-10.1); CHLORIDE 103 MMOL/L (99-107); CREATININE 0.88 MG/DL (0.60-1.10); GLUCOSE 94 MG/DL (70-104); PARTIAL THROMBOPLASTIN TIME 27 SECONDS (22-32); SODIUM 136 MMOL/L (135-145); TOTAL CARBON DIOXIDE 26.3 MMOL/L (24-32); TOTAL PROTEIN 8.3 G/DL (6.4-8.2); eGFR > 90 ML/MIN
== END 2019-07-16 13:08 | disposition home or self-care (01) ==
LOC: ER 10:28
DX: L08.89 Other specified local infections of the skin and subcutaneous tissue (principal); R60.0 Localized edema; G89.29 Other chronic pain; F12.90 Cannabis use, unspecified, uncomplicated; F15.90 Other stimulant use, unspecified, uncomplicated; F11.90 Opioid use, unspecified, uncomplicated; Z86.718 Personal history of other venous thrombosis and embolism; Z86.711 Personal history of pulmonary embolism; Z59.0 Homelessness; Z88.6 Allergy status to analgesic agent; Z56.0 Unemployment, unspecified; Z79.01 Long term (current) use of anticoagulants
CPT/HCPCS: 36415; 80053; 85025; 85610; 85730; 99283

== ENCOUNTER 2019-07-23 11:01 | Emergency (ER) | payer MEDICAID ==
[~2019-07-23] VITALS: Ht 165.1 cm; Wt 78.0 kg
--- NOTE | 2019-07-23 11:43 | NUR ---
pt came from [facility]
[2019-07-23 13:08] VITALS: BP 117/61
== END 2019-07-23 13:10 | disposition home or self-care (01) ==
LOC: ER 11:02
DX: I82.592 Chronic embolism and thrombosis of other specified deep vein of left lower extremity (principal); L03.116 Cellulitis of left lower limb; G89.29 Other chronic pain; F41.9 Anxiety disorder, unspecified; F32.9 Major depressive disorder, single episode, unspecified; F20.9 Schizophrenia, unspecified; F12.90 Cannabis use, unspecified, uncomplicated; F15.90 Other stimulant use, unspecified, uncomplicated; F11.90 Opioid use, unspecified, uncomplicated; Z59.0 Homelessness; Z86.711 Personal history of pulmonary embolism; Z56.0 Unemployment, unspecified; Z88.5 Allergy status to narcotic agent
CPT/HCPCS: 93971; 99284

== ENCOUNTER 2019-11-01 01:50 | Emergency (ER) | payer MEDICAID ==
[~2019-11-01] VITALS: Ht 170.2 cm; Wt 72.7 kg
--- NOTE | 2019-11-01 01:58 | NUR ---
pt sent to bathroom for urine speciman and to change into a gown pt reports he was seen at [facility] yesterday and decided to day to come her when his leg started to hurt . he reports he was " kicked out " of the misssion and needs a place to stay . abd would also like to seek mental health evaluation . advised pt he will be seen by md shortly.
[2019-11-01] MEDS ORDERED: sulfamethoxazole/trimethoprim DS (800/160mg) tablet PO ONE (02:25)
[2019-11-01] MEDS ORDERED: SULF1TAB49 PO (02:28)
[2019-11-01 02:48] VITALS: BP 126/69
== END 2019-11-01 02:45 | disposition home or self-care (01) ==
LOC: ER 01:50
DX: G89.29 Other chronic pain (principal); L08.9 Local infection of the skin and subcutaneous tissue, unspecified; M79.662 Pain in left lower leg; M79.89 Other specified soft tissue disorders; F41.9 Anxiety disorder, unspecified; F32.9 Major depressive disorder, single episode, unspecified; F20.9 Schizophrenia, unspecified; F12.90 Cannabis use, unspecified, uncomplicated; F15.90 Other stimulant use, unspecified, uncomplicated; F11.90 Opioid use, unspecified, uncomplicated; F19.90 Other psychoactive substance use, unspecified, uncomplicated; Z88.6 Allergy status to analgesic agent; Z86.711 Personal history of pulmonary embolism; Z86.718 Personal history of other venous thrombosis and embolism; Z98.890 Other specified postprocedural states; Z56.0 Unemployment, unspecified; Z59.0 Homelessness; Z79.899 Other long term (current) drug therapy
CPT/HCPCS: 99283

== ENCOUNTER 2019-11-02 03:47 | Emergency (ER) | payer MEDICAID ==
[~2019-11-02] VITALS: Ht 165.1 cm; Wt 63.6 kg
[~2019-11-02 03:47] MED LIST changes: +SULF1TAB49 PO
[2019-11-02 03:48] VITALS: BP 131/76
[2019-11-02] MEDS ORDERED: acetaminophen 325mg tablet PO STA (03:50)
[2019-11-02 04:47] LABS: URINE AMPHETAMINE SCREEN POSITIVE (Neg); URINE BARBITUATE SCREEN NEGATIVE (Neg); URINE BENZODIAZEPINES SCREEN NEGATIVE (Neg); URINE CANNABINOID SCREEN POSITIVE (Neg); URINE COCAINE SCREEN NEGATIVE (Neg); URINE METHADONE SCREEN NEGATIVE (Neg); URINE OPIATE SCREEN POSITIVE (Neg); URINE PHENCYCLIDINE SCREEN NEGATIVE (Neg)
== END 2019-11-02 04:26 | disposition home or self-care (01) ==
LOC: ER 03:48
DX: M79.662 Pain in left lower leg (principal); F15.10 Other stimulant abuse, uncomplicated; G89.29 Other chronic pain; F41.9 Anxiety disorder, unspecified; F32.9 Major depressive disorder, single episode, unspecified; F20.9 Schizophrenia, unspecified; F12.90 Cannabis use, unspecified, uncomplicated; F11.90 Opioid use, unspecified, uncomplicated; F19.90 Other psychoactive substance use, unspecified, uncomplicated; Z76.89 Persons encountering health services in other specified circumstances; Z86.711 Personal history of pulmonary embolism; Z86.718 Personal history of other venous thrombosis and embolism; Z98.890 Other specified postprocedural states; Z72.89 Other problems related to lifestyle; Z56.0 Unemployment, unspecified; Z59.0 Homelessness; Z88.8 Allergy status to other drugs, medicaments and biological substances; Z79.2 Long term (current) use of antibiotics; Z79.899 Other long term (current) drug therapy
CPT/HCPCS: 80305; 99283